=== PATIENT | male | born 1960 | race Caucasian/White ===

== ENCOUNTER 2024-09-25 20:21 | Inpatient (IN) | payer BC ==
--- NOTE | 2024-09-25 20:31 | ED ---
CPR HPI - General Chief Complaint: Cardiac Arrest/CPR Stated Complaint: Cardiac Arrest Time Seen by Provider: 09/25/24 20:29 Source: patient, RN notes reviewed, old records reviewed Mode of arrival: EMS Limitations: altered mental status - History of Present Illness Initial Comments: This is a 63-year-old male who collapsed with family, started CPR and called EMS patient was found by EMS to have ventricular fibrillation was defibrillated then ventricular tachycardia was defibrillated and had return of pulse and return of spontaneous regulation awake and alert and presents to the ER awake and alert without any acute complaints. MD Complaint: found unresponsive, stopped breathing, collapsed during activity, other (No pulse) -: minute(s) Place: home Bystander CPR Performed: Yes AED Applied by Bystander/Tutoring Manager: Yes Shock Advised: Yes Number of Shocks Delivered: 2 Initial Findings in the Field: unresponsive, no respirations, no pulse ROSC in the Field: Yes Associated Injuries: No - Related Data Allergies Allergy/AdvReac Type Severity Reaction Status Date / Time No Known Allergies Allergy Verified 09/25/24 20:27 Review of Systems ROS Statement: Those systems with pertinent positive or pertinent negative responses have been documented in the HPI. ROS Other: All systems not noted in ROS Statement are negative. Past Medical History Past Medical History: Unable to Obtain Past Surgical History: Unable to Obtain Smoking Status: Never smoker Past Alcohol Use History: Daily Past Drug Use History: Marijuana General Exam Limitations: altered mental status (Mild confusion) General appearance: alert, in no apparent distress, anxious Head exam: Present: atraumatic, normocephalic, normal inspection Eye exam: Present: normal appearance, PERRL, EOMI. Absent: scleral icterus, conjunctival injection, periorbital swelling ENT exam: Present: normal exam, mucous membranes moist Neck exam: Present: normal inspection. Absent: tenderness, meningismus, lymphadenopathy Respiratory exam: Present: normal lung sounds bilaterally. Absent: respiratory distress, wheezes, rales, rhonchi, stridor Cardiovascular Exam: Present: regular rate, normal rhythm, normal heart sounds. Absent: systolic murmur, diastolic murmur, rubs, gallop, clicks GI/Abdominal exam: Present: soft, normal bowel sounds. Absent: distended, tenderness, guarding, rebound, rigid Extremities exam: Present: normal inspection, full ROM, normal capillary refill. Absent: tenderness, pedal edema, joint swelling, calf tenderness Back exam: Present: normal inspection Neurological exam: Present: alert, oriented X3, CN II-XII intact Psychiatric exam: Present: normal affect, normal mood Skin exam: Present: warm, dry, intact, normal color. Absent: rash Course Vital Signs 09/25/24 09/25/24 09/25/24 20:23 21:05 23:06 Temperature 98.0 F Pulse Rate 80 80 78 Respiratory 18 18 18 Rate Blood Pressure 109/75 90/73 100/70 O2 Sat by Pulse 98 99 97 Oximetry - Reevaluation(s) Reevaluation #1: 09/25/24 21:40 Medical records reviewed Reevaluation #2: 09/25/24 21:40 Patient symptoms remain improved here in the ER no complaints Reevaluation #3: 09/25/24 21:40 Patient informed of results and questions answered Reevaluation #4: Was pt. sent in by a medical professional or institution (, PA, BLENDING OPERATOR, urgent care, hospital, or jail...) When possible be specific @ -no Did you speak to anyone other than the patient for history (EMS, parent, family, police, friend...)? What history was obtained from this source @ -no Did you review nursing and triage notes (agree or disagree)? Why? @ -agree Are old charts reviewed (outside hosp., previous admission, EMS record, old EKG, old radiological studies, urgent care reports/EKG's, jail records)? Report findings @ -yes Differential Diagnosis (chest pain, altered mental status, abdominal pain women, abdominal pain men, vaginal bleeding, weakness, fever, dyspnea, syncope, headache, dizziness, GI bleed, back pain, seizure, CVA, palpatations, mental health, musculoskeletal)? @ -prior EKG interpreted by me (3pts min.). @ -yes X-rays interpreted by me (1pt min.). @ -yes negative for acute disease CT interpreted by me (1pt min.). @ -no U/S interpreted by me (1pt. min.). @ -no What testing was considered but not performed or refused? (CT, X-rays, U/S, labs)? Why? @ -none What meds were considered but not given or refused? Why? @ -none Did you discuss the management of the patient with other professionals (professionals i.e. , PA, BLENDING OPERATOR, lab, RT, psych nurse, high school social studies tutor, agricultural mechanic, teacher, collections officer, case management assistant)? Give summary @ -no Was smoking cessation discussed for >3mins.? @ -no Was critical care preformed (if so, how long)? @ -no Were there social determinants of health that impacted care today? How? (Homelessness, low income, unemployed, alcoholism, drug addiction, transportation, low edu. Level, literacy, decrease access to med. care, [place] [facility], rehab)? @ -none Was there de-escalation of care discussed even if they declined (Discuss DNR or withdrawal of care, Hospice)? DNR status @ -no What co-morbidities impacted this encounter? (DM, HTN, Smoking, COPD, CAD, Cancer, CVA, ARF, Chemo, Hep., AIDS, mental health diagnosis, sleep apnea, morbid obesity)? @ -none Was patient admitted / discharged? Hospital course, mention meds given and route, prescriptions, significant lab abnormalities, going to OR and other pertinent info. @ - Undiagnosed new problem with uncertain prognosis? @ -no Drug Therapy requiring intensive monitoring for toxicity (Heparin, Nitro, Insulin, Cardizem)? @ -no Were any procedures done? @ -no Diagnosis/symptom? @ - Acute, or Chronic, or Acute on Chronic? @ -Acute Uncomplicated (without systemic symptoms) or Complicated (systemic symptoms)? @ -Complicated Side effects of treatment? @ -no Exacerbation, Progression, or Severe Exacerbation? @ -exacerbation Poses a threat to life or bodily function? How? (Chest pain, USA, NC, pneumonia, PE, COPD, DKA, ARF, appy, cholecystitis, CVA, Diverticulitis, Homicidal, Suicidal, threat to staff... and all critical care pts) @ -yes - Consultations Consultation #1: Spoke with elisa who agrees to admit this patient Medical Decision Making - Medical Decision Making 63 male coming in with cardiac arrest ventricular fibrillation, ventricular tachycardia return of spontaneous circulation and currently awake and alert. No EKG changes, patient will admit for cardiac evaluation - Lab Data Result diagrams: 09/25/24 20:31 09/25/24 20:53 Lab Results 09/25/24 09/25/24 09/25/24 Range/Units 20:31 20:31 20:53 WBC 10.77 H (4.50-10.00) 10*3/uL RBC 4.85 (4.40-5.60) 10*6/uL Hgb 14.4 (13.0-17.0) g/dL Hct 43.0 (39.6-50.0) % MCV 88.7 (80.0-97.0) fL MCH 29.7 (27.0-32.0) pg MCHC 33.5 (32.0-37.0) g/dL Plt Count 157 (140-440) 10*3/uL MPV 11.2 (9.5-12.2) fL Immature Gran % (Auto) 1.0 % Neutrophils % 59.4 % Lymphocytes % 33.1 % Monocytes % 5.4 % Eosinophils % 0.8 % Basophils % 0.3 % Immature Gran # 0.11 H (0.00-0.04) 10*3/uL Neutrophils # 6.40 (1.80-7.70) 10*3/uL Lymphocytes # 3.56 (0.90-5.00) 10*3/uL Monocytes # 0.58 (0.20-1.00) 10*3/uL Eosinophils # 0.09 (0.04-0.35) 10*3/uL Basophils # 0.03 (0.00-0.10) 10*3/uL PT (10.0-12.5) sec INR (<1.2) APTT (22.0-30.0) sec Sodium 138 (137-145) mmol/L Potassium 4.4 (3.5-5.1) mmol/L Chloride 105 (98-107) mmol/L Carbon Dioxide 23 (22-30) mmol/L Anion Gap 10 mmol/L BUN 15 (9-20) mg/dL Creatinine 1.15 (0.66-1.25) mg/dL Est GFR (CKD-EPI)AfAm 78 (>60 ml/min/1.73 sqM) Est GFR (CKD-EPI)NonAf 68 (>60 ml/min/1.73 sqM) Glucose 159 H (74-99) mg/dL Lactic Ac Sepsis Rflx Plasma Lactic Acid Lucho 4.4 H* (0.7-2.0) mmol/L Calcium 8.5 (8.4-10.2) mg/dL Phosphorus 4.4 (2.5-4.5) mg/dL Magnesium 2.0 (1.6-2.3) mg/dL Total Bilirubin 0.5 (0.2-1.3) mg/dL AST 413 H (17-59) U/L ALT 369 H (4-49) U/L Alkaline Phosphatase 57 (38-126) U/L Troponin I (0.000-0.034) ng/mL NT-Pro-B Natriuret Pep 476 pg/mL Total Protein 6.5 (6.3-8.2) g/dL Albumin 3.5 (3.5-5.0) g/dL 09/25/24 09/25/24 09/25/24 Range/Units 20:53 20:53 21:05 WBC (4.50-10.00) 10*3/uL RBC (4.40-5.60) 10*6/uL Hgb (13.0-17.0) g/dL Hct (39.6-50.0) % MCV (80.0-97.0) fL MCH (27.0-32.0) pg MCHC (32.0-37.0) g/dL Plt Count (140-440) 10*3/uL MPV (9.5-12.2) fL Immature Gran % (Auto) % Neutrophils % % Lymphocytes % % Monocytes % % Eosinophils % % Basophils % % Immature Gran # (0.00-0.04) 10*3/uL Neutrophils # (1.80-7.70) 10*3/uL Lymphocytes # (0.90-5.00) 10*3/uL Monocytes # (0.20-1.00) 10*3/uL Eosinophils # (0.04-0.35) 10*3/uL Basophils # (0.00-0.10) 10*3/uL PT 11.0 (10.0-12.5) sec INR 1.0 (<1.2) APTT 20.0 L (22.0-30.0) sec Sodium (137-145) mmol/L Potassium (3.5-5.1) mmol/L Chloride (98-107) mmol/L Carbon Dioxide (22-30) mmol/L Anion Gap mmol/L BUN (9-20) mg/dL Creatinine (0.66-1.25) mg/dL Est GFR (CKD-EPI)AfAm (>60 ml/min/1.73 sqM) Est GFR (CKD-EPI)NonAf (>60 ml/min/1.73 sqM) Glucose (74-99) mg/dL Lactic Ac Sepsis Rflx Y Plasma Lactic Acid Lucho (0.7-2.0) mmol/L Calcium (8.4-10.2) mg/dL Phosphorus (2.5-4.5) mg/dL Magnesium (1.6-2.3) mg/dL Total Bilirubin (0.2-1.3) mg/dL AST (17-59) U/L ALT (4-49) U/L Alkaline Phosphatase (38-126) U/L Troponin I 2.190 H* (0.000-0.034) ng/mL NT-Pro-B Natriuret Pep pg/mL Total Protein (6.3-8.2) g/dL Albumin (3.5-5.0) g/dL - EKG Data -: EKG Interpreted by Me (EKG is sinus 80 WA 150 QRS [address] elevation noted) - Radiology Data Radiology results: report reviewed (Chest x-ray CTA chest negative for acute disease), image reviewed Critical Care Time Critical Care Time: Yes Total Critical Care Time: 31 Disposition Clinical Impression: Cardiac arrest, Ventricular tachycardia, Ventricular fibrillation Disposition: ADMITTED IP TO THIS HOSP Condition: Fair Is patient prescribed a controlled substance at d/c from ED?: No Referrals: None,Stated [Primary Care Provider] - 1-2 days Time of Disposition: 21:30
[2024-09-25 20:43] LABS: Basophils # (A) 0.03 10*3/uL (0.00-0.10); Basophils % (A) 0.3 %; Eosinophils # (A) 0.09 10*3/uL (0.04-0.35); Eosinophils % (A) 0.8 %; HGB 14.4 g/dL (13.0-17.0); Lymphocytes # (A) 3.56 10*3/uL (0.90-5.00); Lymphocytes % (A) 33.1 %; MCH 29.7 pg (27.0-32.0); MCHC 33.5 g/dL (32.0-37.0); MCV 88.7 fL (80.0-97.0); Mean Platelet Volume 11.2 fL (9.5-12.2); Monocytes # (A) 0.58 10*3/uL (0.20-1.00); Monocytes % (A) 5.4 %; Neutrophils % (A) 59.4 %; Platelet Count 157 10*3/uL (140-440); RBC 4.85 10*6/uL (4.40-5.60); RDW 13.7 % (11.5-14.5); WBC 10.77 10*3/uL (4.50-10.00)
[2024-09-25] MEDS: SODIUM CHLORIDE 0.9% 1,000 ML IV ONE (20:45)
[2024-09-25] MEDS: DEXTROSE 5% IN WATER 100 ML with AMIODARONE 150 MG IV ONE (20:58)
[2024-09-25] MEDS: AMIODARONE 360 MG in DEXTROSE 5% IN WATER 200 ML IV ONE (21:11)
--- NOTE | 2024-09-25 21:21 | XR ---
EXAMINATION TYPE: XR chest 1V portable DATE OF EXAM: 09/25/2024 8:47 PM COMPARISON: None. CLINICAL INDICATION: Male, 63 years old with history of sob, TECHNIQUE: XR chest 1V portable view(s) obtained. FINDINGS: The heart size is normal. The pulmonary vasculature is normal. Some mild peripheral right upper lobe infiltrate may be present. Correlate for pneumonia. Consider at ypical pneumonia. Minimal effusions may be present. IMPRESSION: 1. Mild right upper lobe infiltrate appears to be present. Correlate for pneumonia. 2. Small bilateral pleural effusions. [facility], , 09/25/2024 9:18 PM
[2024-09-25 21:24] LABS: ALT 369 U/L (4-49); AST 413 U/L (17-59); African American GFR (CKD) 78 (>60 ml/min/1.73 sqM); Albumin 3.5 g/dL (3.5-5.0); Alkaline Phosphatase 57 U/L (38-126); Anion Gap 10 mmol/L; Blood Urea Nitrogen 15 mg/dL (9-20); Calcium 8.5 mg/dL (8.4-10.2); Carbon Dioxide 23 mmol/L (22-30); Chloride 105 mmol/L (98-107); Glucose 159 mg/dL (74-99); Non-African American GFR(CKD) 68 (>60 ml/min/1.73 sqM); Phosphorus 4.4 mg/dL (2.5-4.5); Potassium 4.4 mmol/L (3.5-5.1); Sodium 138 mmol/L (137-145); Total Bilirubin 0.5 mg/dL (0.2-1.3); Total Protein 6.5 g/dL (6.3-8.2)
[2024-09-25 21:31] LABS: NT-Pro-B-Type Natriuretic Pept 476 pg/mL
[2024-09-25] MEDS ORDERED: NITROGLYCERIN SL TABS 0.4 MG TAB SUBLINGUAL PRN (21:35)
[2024-09-25] MEDS ORDERED: MORPHINE SULFATE 4 MG/ML SYRINGE IV PRN (21:35)
[2024-09-25] MEDS: ONDANSETRON 4 MG/2 ML VIAL IVP STA (21:42)
--- NOTE | 2024-09-25 22:10 | CT ---
EXAMINATION TYPE: CT angio chest DATE OF EXAM: 09/25/2024 9:54 PM COMPARISON: None. CLINICAL INDICATION: Male, 63 years old with history of pe, cardiac arrest, post CPR, TECHNIQUE: CT of the chest is performed on a spiral scan at 2 mm thick sections. Study is performed with intravenous contrast timed for evaluation for pulmonary embolism. This will limit additional po rtions of the evaluation. 10mm MIP images reconstructed by the technologist are reviewed on the comp uter in the coronal and sagittal planes. Contrast used:80 mL of Isovue 370 with IV Contrast, (none if empty) Oral contrast used: (none if empty) CT DLP: 558.8 mGycm, Automated exposure control for dose reduction was used. FINDINGS: No persistent filling defects are evident to suggest an acute pulmonary embolism. No mediastinal or hilar adenopathy enlarged by CT criteria is evident. The ascending aorta diameter at the level of the main pulmonary artery is 3.9 cm. The main pulmonary artery diameter at the bifurcation is 3.0 cm. There appears to be some scarring at the right apex. Moderate emphysematous changes are present. Some diffuse increased lung markings at the right lung. Consider pulmonary fibrosis. Neoplasm could b e considered. Infectious etiologies less likely. There is some mild infiltrate at the posterior left lung base. A 1.2 cm nodule may be at the posterior left lung sulcus. Series 406 image 132. No significant coronary artery calcifications. No rib fractures are evident. No pneumothorax is evident. Limited CT sections were through the upper abdomen. Upper abdomen appears unremarkable. IMPRESSION: 1. No acute pulmonary embolism. 2. Lung nodule posterior left lung. Additional workup is recommended. 3. Diffuse increased lung markings right mid lung. Pulmonary fibrosis, neoplasm or possibly infectiou s etiology could be considered. Consider pulmonary contusion. Additional workup recommended. [facility], , 09/25/2024 10:07 PM
[2024-09-25] MEDS: HEPARIN SOD,PORK IN 0.45% NACL 25,000 UNIT in 0.45% NACL 1 250ML.BAG IV SCH (22:58)
[2024-09-25] MEDS: HEPARIN SODIUM 1,000 UN/ML (10ML VL) IV ONE (22:58)
[2024-09-25] MEDS: ASPIRIN 81 MG PO STA (23:03)
[2024-09-25] MEDS ORDERED: IPRATROPIUM-ALBUTEROL 3 ML NEB INHALATION PRN (23:18)
[2024-09-25] MEDS ORDERED: NALOXONE 0.4 MG/ML 1 ML VIAL IV PRN (23:18)
[2024-09-25] MEDS: PANTOPRAZOLE 40 MG/10 ML VIAL IV SCH (23:48)
--- NOTE | 2024-09-26 01:34 | P.CNPUL ---
History of Present Illness Consult date: 09/26/24 Requesting physician: Barrett Lam Reason for consult: other (Jee-gh-rzptwmdk cardiac arrest) Chief complaint: Zen-kn-bgkwyifk cardiac arrest History of present illness: Patient is a 63-year-old male with little known past medical history, he does not follow with a primary care provider. Not currently prescribed any medications at home. Patient went unresponsive at the kitchen table last night, EMS was called immediately. His moved him to the floor and started CPR. When EMS arrived, patient was found to be in ventricular fibrillation/ventricular tachycardia, defibrillated x 2. Following return of spontaneous circulation patient became responsive and alert. He was not in tubated. He was brought into the emergency department late last night. EKG showing normal sinus rhythm, rate 80 bpm, occasional unifocal PVCs, without any acute ST segment elevations or T wave inversions. He was loaded with IV amiodarone, and started on the protocol. Also, started on IV heparin per cardiology recommendations. Labs including a CBC which was grossly unremarkable. CMP: Low sodium 138, potassium 4.4, chloride 105, serum bicarb 23, BUN 15, creatinine 1.15, glucose 159. Lactic was 4.4 is down to 1.9 did receive a 1 L normal saline bolus in the ED. Magnesium 2. AST 413, ALT 369, ALP 57. Troponin elevated at 2.19. NT proBNP 476. Currently being evaluated in trauma bay 1. He is awake and alert and oriented. Continues on IV amiodarone at 1 mg/min as well as IV heparin per protocol. Hemodynamics are currently stable. Not on any vasopressors. Denies any current chest pain; although, experiencing intermittent right-sided chest pain, as well as, associated right arm aching over the last 2 to 3 days. Did recall episode of heartburn, nausea, and diaphoresis preceding his cardiac arrest. No significant lower extremity edema. Denies any shortness of breath, cough, sputum production, hemoptysis. States he was recently treated for bronchitis on outpatient basis by a local urgent care center 2 to 3 weeks ago with a combination of antibiotics and steroids. Chest CTA done in the emergency department did not show any acute pulmonary embolism. Left posterior lower lung nodule measuring approximately 1.2 cm. Increased interstitial right mid lung markings. No pneumothoraces, pleural effusions. current vital signs: Afebrile, heart rate 70 bpm, blood pressure 100/70 mmHg, nontachypneic, SpO2 recorded at 97% on 2 L/min nasal cannula. Review of Systems REVIEW OF SYSTEMS: CONSTITUTIONAL: Denies any recent significant weight loss or weight gain. EYES: Denies change in vision. EARS, NOSE, MOUTH, THROAT: Denies headaches, denies sore throat. CARDIOVASCULAR: See HPI RESPIRATORY: See HPI GASTROINTESTINAL: Denies change in appetite, abdominal pain, nausea and vomiting, or diarrhea GENITOURINARY: Denies hematuria, denies infections. MUSKULOSKELETAL: Denies pain, denies swelling. INTEGUMENTARY: Denies rash, denies eczema. NEUROLOGICAL: Denies recent memory loss, no recent seizure activity. PSYCHIATRIC: Denies anxiety, denies depression. HEMATOLOGIC/LYMPHATIC: Denies anemia, denies enlarged lymph node Past Medical History Past Medical History: Unable to Obtain Past Surgical History: Unable to Obtain Smoking Status: Never smoker Past Alcohol Use History: Daily Past Drug Use History: Marijuana Medications and Allergies Home Medications Medication Instructions Recorded Confirmed Type No Known Home Medications 09/26/24 09/26/24 History Allergies Allergy/AdvReac Type Severity Reaction Status Date / Time No Known Allergies Allergy Verified 09/26/24 09:36 Physical Exam Vitals: Vital Signs Temp Pulse Resp BP Pulse Ox 09/25/24 23:06 78 18 100/70 97 09/25/24 21:05 80 18 90/73 99 09/25/24 20:23 98.0 F 80 18 109/75 98 Intake and Output 09/25/24 09/25/24 09/26/24 14:59 22:59 06:59 Other: Weight 113.398 kg GENERAL EXAM: Alert, 63-year-old male, comfortable in no apparent distress. HEAD: Normocephalic and atraumatic EYES: Normal reaction of pupils, equal size. NOSE: Clear with pink turbinates. THROAT: No erythema or exudates. NECK: No masses, no JVD. CHEST: No chest wall deformity. LUNGS: Equal air entry with no crackles, wheeze, rhonchi or dullness. On 2 L/min nasal cannula. No conversational dyspnea or accessory muscle use.. CVS: S1 and S2 normal with no audible murmur, regular rhythm. No extra heart sounds ABDOMEN: No hepatosplenomegaly, active bowel sounds, no guarding or rigidity. SPINE: No scoliosis or deformity SKIN: No rashes CENTRAL NERVOUS SYSTEM: No focal deficits, tone is normal in all 4 extremities. EXTREMITIES: There is no peripheral edema, clubbing, or cyanosis. Peripheral pulses are intact. Results - Laboratory Findings CBC and BMP: 09/25/24 20:31 09/26/24 03:40 PT/INR, D-dimer PT 11.0 sec (10.0-12.5) 09/25/24 20:53 INR 1.0 (<1.2) 09/25/24 20:53 Abnormal lab findings: Abnormal Labs 09/25/24 09/25/24 09/25/24 20:31 20:31 20:53 WBC 10.77 H Immature Gran # 0.11 H APTT Glucose 159 H Plasma Lactic Acid Lucho 4.4 H* AST 413 H ALT 369 H Troponin I 09/25/24 04 20:53 20:53 WBC Immature Gran # APTT 20.0 L Glucose Plasma Lactic Acid Lucho AST ALT Troponin I 2.190 H* - Diagnostic Findings Chest x-ray: image reviewed CT scan - chest: image reviewed Assessment and Plan Assessment: Witnessed [id number] cardiac arrest, presenting rhythm when EMS arrived was ventricular fibrillation/ventricular tachycardia, defibrillated x 2, and ROSC was achieved in the field. Started on the IV amiodarone and IV heparin in the emergency department. Elevated troponins, rule out ACS Lactic acidemia, improved Acute hypoxemic respiratory failure, currently on 2 L/min nasal cannula, chest CTA did not show any acute pulmonary embolism. No pneumothoraces or pleural effusions. Left posterior lung nodule measuring approximately 1.2 cm. Increased interstitial right mid lung markings. Former tobacco smoker, quit approximately 15 years ago Obesity, BMI of 33.9 kg/m Plan: Patient had a witnessed [id number] cardiac arrest, with layperson CPR, and subsequent defibrillation x 2 by EMS. Did not require intubation in the field. Continues on IV amiodarone infusing at 1 mg/min, as well as, IV heparin per protocol. Patient is going to be worked up by cardiology for ACS. Trend troponins. Obtain transthoracic echocardiogram. Possible heart catheterization. Chest CTA did not show any acute pulmonary embolism. No pneumothoraces or pleural effusions. Other incidental pulmonary findings can be followed up on outpatient basis Case discussed over the phone with Dr. Yeung, no further recommendations at this time. Patient will be admitted to the intensive care unit for close monitoring once bed available. I have personally seen and examined the patient, performed the documentation and the assessment and plan as written. Number of minutes spent on the visit:20 This is a joint evaluation that was done along with the nurse practitioner. This evaluation was done and 35 minutes. The patient is post cardiac arrest with V-fib/V. tach requiring defibrillation and return of spontaneous circulation. At this point in time, the patient remains on IV heparin and IV amiodarone. Cardiac rhythm is sinus and is free of any chest pain. Hemodynamically stable. Troponins peaked at 5.2. Electrolytes all within normal limits. Normal renal function. CBC is also within normal limits. Chest x-ray was reviewed and it shows mild right upper lobe infiltration and small pleural effusions. CT of the chest was also reviewed and shows no evidence of any pulmonary embolism. There is increased interstitial markings in the right midlung area, probably chronic. A 1.2 cm nodular structure was seen in the posterior left lung sulcus, likely benign. There is some emphysematous changes bilaterally to previous smoking. This can be addressed at a later stage. No evidence of any filling defect. No hilar lymphadenopathy. No mediastinal lymphadenopathy. Ascending aorta was measuring 3.9 cm in size. The patient will be taken to cardiac catheterization for further investigation. Ech ocardiogram shows a preserved LV function with an ejection fraction of 50 to 55%, there is inferior and inferior septal hypokinesis and moderate RV dilatation and unable to estimate the PA pressures. is at the bedside. Comorbidities include former smoker who quit smoking approximately 15 years ago. The patient does not follow-up with a physician on a regular basis. Awaiting cardiac catheterization and following that the patient will be moved to the intensive care unit. Continue same treatment for now. Time with Patient: Greater than 30
[2024-09-26] MEDS: MAGNESIUM SULFATE-D5W PMX 1 GM in DEXTROSE/WATER 1 100ML.BAG IVPB SCH (02:12)
[2024-09-26] MEDS: AMIODARONE 450 MG in DEXTROSE 5% IN WATER 250 ML IV SCH (03:07)
--- NOTE | 2024-09-26 03:22 | P.HPIM ---
History of Present Illness Patient is a 63-year-old male with no known medical history arrived by EMS due to cardiac arrest. Patient was reported to have collapsed at home and bystander CPR was initiated by his and EMS was called. On arrival EMS determined patient to have ventricular fibrillation and was defibrillated. Rhythm then converted to ventricular tachycardia and another defibrillation was done and ROSC was achieved. Patient arrived in the ER awake and alert without any acute complaints. Patient reported that prior to losing consciousness he was experiencing chest pain that was burning in sensation that radiated to the back and his right arm that was constant and was occurring 2 days prior to day of admission. He reported that the intensity was around 8 out of 10 at maximum and was not relieved by [id number] aspirin. He mentions that the pain is worse with exertion and relieved with rest. At the time of evaluation, he denied chest pain. He denied palpitations, shortness of breath, extremity swelling, productive cough, focal weakness, facial asymmetry, changes in vision, changes in speech. He recently had been diagnosed with bronchitis and pneumonia a week ago and was placed on oral steroid taper for 5 days and antibiotics for 7 days in which his symptoms improved. He has not seen a PCP in many years. On admission: Vitals: Temperature 98 Fahrenheit, pulse rate 80, blood pressure 109/75, O2 saturation 98% on 2 L nasal cannula Labs: WBC 10.77, hemoglobin 14.4, platelet count 1 57,000, glucose 159, potassium 4.4, bicarb 23, BUN 15, creatinine 1.15, lactic acid 4.4, AST 413, ALT 369, troponin 2.19. Imaging: Chest x-ray showed mild right upper lobe infiltrate correlate for pneumonia and small bilateral pleural effusions. CT angiography showed no acute pulmonary embolism, lung nodule noted on posterior left lung, diffuse increased lung markings in the right midlung. EKG showed sinus rhythm with a rate of 80 bpm, IN interval 150 MS, PVCs noted, no ST-T changes, normal axis, QTc 361 MS. ED documentation reviewed. Amiodarone drip, aspirin, heparin drip, metoprolol tartrate initiated in the ED. 1 L normal saline bolus given in the ED. Review of systems: Pertinent positives and negatives as discussed in HPI, a complete review of systems was performed and all other systems are negative. Social history: Tobacco: Former smoker. Quit 15 years ago. Smoked 2 packs a day for 35 years. Alcohol: Denied alcohol intake Recreational drugs: Currently smokes marijuana. 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 Physical examination: Vital signs reviewed General: non toxic, no distress, appears at stated age, on room air Derm: no unusual rashes/lesions, warm Head: atraumatic, normocephalic, symmetric Eyes: EOMI, anicteric sclera, pupils equal round reactive to light ENT: Nose and ears atraumatic Neck: No cervical lymphadenopathy, trachea midline, supple Mouth: no lip lesion, mucus membranes moist Cardiovascular: S1S2 reg, no murmur Lungs: CTA bilateral, no rhonchi, no rales, no accessory muscle use Abdominal: soft, nondistended, nontender to palpation, no guarding Ext: muscle strength 5 out of 5 in all 4 extremities grossly, no gross muscle atrophy, no contractures, positive dorsalis pedis pulse bilateral, no edema Neuro: CN II-XI grossly intact, no gross focal neuro deficits Psych: Alert and oriented x 3, appropriate affect and mood Assessment/Plan: 63-year-old male with no known medical history here for cardiac arrest status post ROSC and shocked x 2 due to ventricular arrhythmia likely due to underlying ACS. The patient is admitted with an anticipated greater than than 2 midnight stay for evaluation of cardiac arrest with ventricular arrhythmia and NSTEMI Active: #. Cardiac arrest suspect secondary to underlying ACS, status post CPR with ROSC #. Ventricular tachycardia and ventricular fibrillation, status post shock x 2 #. NSTEMI #. Lactic acidosis, resolved due to cardiac arrest - troponin 2.19 on admission -lactic acid 4.4. Now 1.9 -EKG showed sinus rhythm with a rate of 80 bpm, IN interval 150 MS, PVCs noted, no ST-T changes, normal axis, QTc 361 MS -Cardiac monitoring -Supplemental oxygen as needed -Heart healthy diet. NPO at midnight -Trend troponin -EKG as needed -Given aspirin 325 mg once in the ED -Continue with aspirin 81 mg daily -Intiate Lipitor 40mg daily -Continue heparin drip - Continue amiodarone drip -Metoprolol tartarate 25 mg PO twice daily -Lidocaine patch ordered -Cardiology consulted -Pulmonology consulted for ICU management -Maintain magnesium above 2 and potassium above 4 - Monitor electrolytes - Check lipid panel, A1c, TSH #. Elevated transaminases likely due to shocked liver - AST 413, ALT 369 -Liver ultrasound ordered - Monitor CMP #. Hyperglycemia due to stress -Recheck in the morning to reevaluate no hx of dm2, a1c pending #. Lung nodule noted on posterior left lung and diffuse increased lung markings in the right midlung on CTA - Patient had recent diagnosis of bronchitis and pneumonia and symptoms have improved -Follow up on out patient basis DVT ppx: Heparin drip GI ppx: IV Protonix daily CODE STATUS: Full Discussed with: Patient Anticipated discharge place: Home Roxanna Herron MD PGY-1 Internal Medicine Dictation was produced using [employer] dictation software. please excuse any grammatical, word or spelling errors. I have seen and evaluated the patient today. Discussed with the resident and agree with the residents finding and plan as documented in the resident's note. 63 YO M who had VT/VF in the field and was shocked. Currently on amiodarone gtt. Concern for ACS as he reports ongoing chest pain prior to presentation. continue heparin gtt and amdioarone gtt at this time pending cardiology expertise for consideration of LHC. Keep NPo Past Medical History Past Medical History: Unable to Obtain Past Surgical History: Unable to Obtain Smoking Status: Never smoker Past Alcohol Use History: Daily Past Drug Use History: Marijuana Medications and Allergies Allergies Allergy/AdvReac Type Severity Reaction Status Date / Time No Known Allergies Allergy Verified 09/25/24 20:27 Physical Exam Vitals: Vital Signs Temp Pulse Resp BP Pulse Ox 09/25/24 23:06 78 18 100/70 97 09/25/24 21:05 80 18 90/73 99 09/25/24 20:23 98.0 F 80 18 109/75 98 Intake and Output 09/25/24 09/25/24 09/26/24 14:59 22:59 06:59 Other: Weight 113.398 kg Results CBC & Chem 7: 09/25/24 20:31 09/26/24 03:40 Labs: Abnormal Lab Results - Last 24 Hours (Table) 09/25/24 09/25/24 09/25/24 Range/Units 20:31 20:31 20:53 WBC 10.77 H (4.50-10.00) 10*3/uL Immature Gran # 0.11 H (0.00-0.04) 10*3/uL APTT (22.0-30.0) sec Glucose 159 H (74-99) mg/dL Plasma Lactic Acid Lucho 4.4 H* (0.7-2.0) mmol/L AST 413 H (17-59) U/L ALT 369 H (4-49) U/L Troponin I (0.000-0.034) ng/mL 09/25/24 09/25/24 Range/Units 20:53 20:53 WBC (4.50-10.00) 10*3/uL Immature Gran # (0.00-0.04) 10*3/uL APTT 20.0 L (22.0-30.0) sec Glucose (74-99) mg/dL Plasma Lactic Acid Lucho (0.7-2.0) mmol/L AST (17-59) U/L ALT (4-49) U/L Troponin I 2.190 H* (0.000-0.034) ng/mL
[2024-09-26 04:40] LABS: ALT 316 U/L (4-49); AST 333 U/L (17-59); African American GFR (CKD) 88 (>60 ml/min/1.73 sqM); Albumin 3.6 g/dL (3.5-5.0); Alkaline Phosphatase 62 U/L (38-126); Anion Gap 9 mmol/L; Blood Urea Nitrogen 14 mg/dL (9-20); Carbon Dioxide 23 mmol/L (22-30); Chloride 104 mmol/L (98-107); Glucose 112 mg/dL (74-99); Non-African American GFR(CKD) 76 (>60 ml/min/1.73 sqM); Potassium 4.4 mmol/L (3.5-5.1); Sodium 136 mmol/L (137-145); Total Bilirubin 0.4 mg/dL (0.2-1.3); Total Protein 6.4 g/dL (6.3-8.2)
--- NOTE | 2024-09-26 07:54 | US ---
EXAMINATION TYPE: US liver DATE OF EXAM: 09/26/2024 COMPARISON: NONE CLINICAL INDICATION: Male, 63 years old with history of elevated transaminases; Abnormal labs. TECHNIQUE: Grayscale and color Doppler imaging of the right upper quadrant was performed. FINDINGS: EXAM MEASUREMENTS: Liver Length: 19.9 cm Gallbladder Wall: 0.2 cm CBD: 0.5 cm Right Kidney: 11.2 x 4.9 x 5.3 cm Pancreas: Tail obscured by overlying bowel gas, Echogenic in appearance Liver: Increased attenuation, decreased visualization of vessels suggestive of fatty infiltrate. En larged in size. Echogenic. Hypoechoic area seen adjacent to gallbladder which could represent focal fatty sparing. Gallbladder: No wall thickening or stones seen Evidence for sonographic Paitner's sign: neg CBD: wnl Right Kidney: No hydronephrosis or masses seen IMPRESSION: 1. Hepatomegaly with fatty infiltration. [facility], , 09/26/2024 7:52 AM
[2024-09-26] MEDS ORDERED: ALPRAZolam 0.5 MG TAB PO PRN (08:14)
[2024-09-26] MEDS ORDERED: NITROGLYCERIN SL TABS 0.4 MG TAB SUBLINGUAL PRN (08:14)
[2024-09-26] MEDS ORDERED: ALPRAZolam 0.25 MG TAB PO PRN (08:14)
[2024-09-26] MEDS: ASPIRIN 81 MG PO SCH (08:57)
[2024-09-26 08:58] LABS: Chol/HDL Ratio 5.26 Ratio; LDL Cholesterol,Calculated 147.3 mg/dL (0.0-131.0)
[2024-09-26] MEDS ORDERED: ASPIRIN 325 MG TAB PO SCH (09:00)
[2024-09-26] MEDS: METOPROLOL TARTRATE 25 MG TAB PO SCH (09:11)
[2024-09-26] MEDS: ASPIRIN 325 MG TAB PO STA (09:11)
[2024-09-26] MEDS: ATORVASTATIN 80 MG TAB PO STA (09:11)
[2024-09-26] MEDS: HEPARIN SODIUM 1,000 UN/ML (10ML VL) IV PRN (09:19)
[2024-09-26] MEDS: LIDOCAINE 4% PATCH TOPICAL SCH (09:22)
[2024-09-26] MEDS: SODIUM CHLORIDE 0.9% 1,000 ML IV SCH (09:22)
--- NOTE | 2024-09-26 10:22 | P.CRDCN ---
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 He has no significant past medical history. History of tobacco use and quit 15 years ago. He uses alcohol daily and marijuana use. We have been asked to evaluate the patient for VT, CHF, CPA. History is obtained from the patient's that for 24 hours before his episode, he was taking Pepto-Bismol. 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 By 7:00 in the evening they were sitting down to the table to eat dinner. He lost consciousness and she called 911 and had also started CPR. When EMS arrived, patient was found to be in ventricular fibrillation and he was defibrillated and went into ventricular tachycardia and was defibrillated a second time. He did have return of pulse and woke up by the time he arrived to the emergency center. Patient does not remember anything after he sat down to eat dinner. He does state that he had some left-sided hip or lumbar area discomfort yesterday. Patient evaluated in the emergency center and recommendations are for cardiac catheterization which he is agreeable to move forward with. Patient's was contacted on the phone by Dr. AISHWARYA Tovar and he obtained history and updated her regarding patient's results and recommendations for cardiac catheterization. Blood pressure 103/75, heart rate 66, pulse ox 93% on room air. Patient has been started on amiodarone and IV heparin. -EKG: Sinus rhythm, nonspecific T wave abnormalities, occasional PVC. -Chest x-ray: Mild right upper lobe infiltrate appears to be present. Correlate for pneumonia. Small bilateral pleural effusions. -CTA chest: No acute pulmonary embolism. Lung nodule posterior left lung. Diffuse increased lung markings in the right midlung. Pulmonary fibrosis, neoplasm or possible infectious etiology could be considered. - Liver ultrasound: Hepatomegaly with fatty infiltration. -Laboratory studies: Troponins 2.19, 2.49, 5.29. AST 333, ALT 316. Sodium 136, potassium 4.4, creatinine 1.04. Triglycerides 122, cholesterol 212, LDL 147. WBC 10.7, hemoglobin 14.4. -Home cardiac medications: None Review Of Systems: At the time of my exam: CONSTITUTIONAL: Denies fever or chills. HEENT: Denies blurred vision, vision changes, or eye pain. Denies hemoptysis CARDIOVASCULAR: Denies chest pain. Denies orthopnea. Denies PND. Denies palpitations RESPIRATORY: Denies shortness of breath. GASTROINTESTINAL: Denies abdominal pain. Denies nausea or vomiting. HEMATOLOGIC: Denies bleeding disorders. GENITOURINARY: Denies any blood in urine. SKIN: Denies puritis. Denies rash. Physical examination: Gen: This is a 63-year-old male in no acute distress. VS: reviewed HEENT: Head is atraumatic, normocephalic. Pupils equal, round. Sclerae is anicteric. NECK: Supple. No JVD. LUNGS: Clear to auscultation. No wheezes or rhonchi. No intercostal retractions. HEART: Regular rate and rhythm. No murmur. ABDOMEN: Soft No tenderness. EXTREMITIES: No pedal edema. No calf tenderness. NEUROLOGICAL: Patient is awake, alert and oriented x3. Assessment: Cardiac arrest with ventricular fibrillation followed by ventricular tachycardia status post defibrillation x 2 with ROSC NSTEMI Acute hypoxic respiratory failure Elevated liver function test Remote history of tobacco use Daily alcohol use Marijuana use Plan: Continue patient on heparin drip Continue patient on amiodarone drip Patient has been started on aspirin 81 mg daily, atorvastatin 40 mg at bedtime, metoprolol tartrate 25 mg twice daily Start patient on IV fluids 100 cc/h Schedule patient for urgent cardiac catheterization today with Dr. Tovar Obtain 2-D echocardiogram and Doppler study to assess cardiac structure and function Further recommendations to follow based upon clinical course Thank you kindly for this consultation. Nurse practitioner note has been reviewed, I agree with documented findings and plan of care. Patient was seen and examined. Past Medical History Past Medical History: Unable to Obtain Past Surgical History: Unable to Obtain Smoking Status: Never smoker Past Alcohol Use History: Daily Past Drug Use History: Marijuana Medications and Allergies Home Medications Medication Instructions Recorded Confirmed Type No Known Home Medications 09/26/24 09/26/24 History Allergies Allergy/AdvReac Type Severity Reaction Status Date / Time No Known Allergies Allergy Verified 09/26/24 09:36 Physical Exam Vitals: Vital Signs Temp Pulse Resp BP Pulse Ox 09/26/24 08:07 66 18 103/75 93 L 09/26/24 07:48 98 09/26/24 07:47 97.5 F L 64 16 105/76 97 09/26/24 06:00 72 18 101/66 96 09/26/24 04:00 67 18 104/74 97 09/26/24 02:08 68 17 96/65 99 09/25/24 23:06 78 18 100/70 97 09/25/24 21:05 80 18 90/73 99 09/25/24 20:23 98.0 F 80 18 109/75 98 Intake and Output 09/25/24 09/26/24 09/26/24 22:59 06:59 14:59 Other: Weight 113.398 kg Results 09/25/24 20:31 09/26/24 03:40 Cardiac Enzymes 09/25/24 09/25/24 09/26/24 Range/Units 20:53 20:53 00:01 AST 413 H (17-59) U/L Troponin I 2.190 H* 2.490 H* (0.000-0.034) ng/mL 09/26/24 09/26/24 Range/Units 03:40 03:40 AST 333 H (17-59) U/L Troponin I 5.290 H* (0.000-0.034) ng/mL Coagulation 09/25/24 09/26/24 Range/Units 20:53 06:33 PT 11.0 (10.0-12.5) sec APTT 20.0 L 27.9 (22.0-30.0) sec CBC 09/25/24 Range/Units 20:31 WBC 10.77 H (4.50-10.00) 10*3/uL RBC 4.85 (4.40-5.60) 10*6/uL Hgb 14.4 (13.0-17.0) g/dL Hct 43.0 (39.6-50.0) % Plt Count 157 (140-440) 10*3/uL Comprehensive Metabolic Panel 09/25/24 09/26/24 Range/Units 20:53 03:40 Sodium 138 136 L (137-145) mmol/L Potassium 4.4 4.4 (3.5-5.1) mmol/L Chloride 105 104 (98-107) mmol/L Carbon Dioxide 23 23 (22-30) mmol/L BUN 15 14 (9-20) mg/dL Creatinine 1.15 1.04 (0.66-1.25) mg/dL Glucose 159 H 112 H (74-99) mg/dL Calcium 8.5 9.0 (8.4-10.2) mg/dL AST 413 H 333 H (17-59) U/L ALT 369 H 316 H (4-49) U/L Alkaline Phosphatase 57 62 (38-126) U/L Total Protein 6.5 6.4 (6.3-8.2) g/dL Albumin 3.5 3.6 (3.5-5.0) g/dL Current Medications Generic Name Dose Route Start Last Admin Trade Name Freq PRN Reason Stop Dose Admin Albuterol/Ipratropium 3 ml 09/25/24 23:18 Ipratropium-Albuterol 3 Ml Neb INHALATION RT-Q4H PRN Shortness Of Breath Or Wheezing Alprazolam 0.25 mg 09/26/24 08:14 Alprazolam 0.25 Mg Tab PO Q6HR PRN Mild Anxiety Alprazolam 0.5 mg 09/26/24 08:14 Alprazolam 0.5 Mg Tab PO Q6HR PRN Moderate Anxiety Aspirin 81 mg 09/26/24 09:00 Aspirin 81 Mg PO DAILY JOSSIE Atorvastatin Calcium 40 mg 09/26/24 21:00 Atorvastatin 40 Mg Tab PO HS JOSSIE Heparin Sodium (Porcine) 0 unit 09/25/24 21:38 Heparin Sodium 1,000 Un/Ml (10ml Vl) IV PER PROTOCOL PRN Low PTT Protocol Amiodarone HCl 450 mg/ 250 mls @ 16.667 mls/hr 09/26/24 03:00 09/26/24 03:07 Dextrose/Water IV 09/26/24 20:59 0.5 mg/min .Q15H JOSSIE 16.667 mls/hr Administration Protocol 0.5 MG/MIN Heparin Sodium/Sodium Chloride 250 mls @ 10.001 mls/hr 09/25/24 22:00 09/25/24 22:58 25,000 unit/ Sodium Chloride IV 8.819 units/kg/hr .Q24H JOSSIE 10.001 mls/hr Administration Protocol 8.819 UNITS/KG/HR Heparin Sodium (Porcine) 10, 1,001 mls @ 999 mls/hr 09/27/24 07:00 000 unit/ Sodium Chloride IRRIGATION 09/27/24 23:00 ONCE PRN INTRA-OP Heparin Sodium (Porcine) 2,500 250.5 mls @ 250 mls/hr 09/27/24 07:00 unit/ Sodium Chloride IRRIGATION 09/27/24 23:00 ONCE PRN INTRA-OP Sodium Chloride 1,000 mls @ 100 mls/hr 09/26/24 08:15 Saline 0.9% IV .Q10H [facility] Lidocaine 1 patch 09/26/24 09:00 Lidocaine 4% Patch TOPICAL DAILY [facility] Protocol Metoprolol Tartrate 25 mg 09/26/24 09:00 Metoprolol Tartrate 25 Mg Tab PO BID [facility] Morphine Sulfate 4 mg 09/25/24 21:35 Morphine Sulfate 4 Mg/Ml Syringe IV Q4HR PRN Chest Pain Naloxone HCl 0.2 mg 09/25/24 23:18 Naloxone 0.4 Mg/Ml 1 Ml Vial IV Q2M PRN Opioid Reversal Nitroglycerin 0.4 mg 09/26/24 08:14 Nitroglycerin Sl Tabs 0.4 Mg Tab SUBLINGUAL Q5M PRN Chest Pain Pantoprazole Sodium 40 mg 09/25/24 23:30 09/25/24 23:48 Pantoprazole 40 Mg/10 Ml Vial IV 40 mg DAILY [facility] Administration Intake and Output 09/25/24 09/26/24 09/26/24 22:59 06:59 14:59 Other: Weight 113.398 kg 09/25/24 20:31 09/26/24 03:40
[2024-09-26] MEDS: MIDAZOLAM 2 MG/2 ML VIAL IVP ONE (11:52)
[2024-09-26] MEDS: IV FLUID CONTINUATION 1,000 ML IV ONE (11:53)
[2024-09-26] MEDS: HEPARIN SODIUM,PORCINE (1 ML) 2,500 UNIT in SODIUM CHLORIDE 0.9% 250 ML IRRIGATION PRN (11:54)
[2024-09-26] MEDS: HEPARIN SODIUM,PORCINE 10,000 UNIT in SODIUM CHLORIDE 0.9% 1,000 ML IRRIGATION PRN (11:55)
[2024-09-26] MEDS: LIDOCAINE 1% INJ 10MG/ML (20 ML MDV) SQ ONE (11:57)
[2024-09-26] MEDS: VERAPAMIL SYRINGE (5 MG/10 ML) INTRAARTER ONE (11:58)
[2024-09-26] MEDS: HEPARIN SODIUM 1,000 UN/ML (10ML VL) IV ONE (12:00)
[2024-09-26] MEDS: PHENYLEPHRINE-0.9% NACL SYG 1,000 MCG/10 ML SYRINGE IVP ONE (12:02)
[2024-09-26] MEDS: NOREPINEPHRINE 4 MG in SODIUM CHLORIDE 0.9% 250 ML IV ONE (12:21)
[2024-09-26] MEDS: TICAGRELOR 90 MG TAB PO ONE (12:31)
[2024-09-26] MEDS: IOPAMIDOL-300 100ML BTL INJ ONE (12:31)
[2024-09-26] MEDS: NITROGLYCERIN 1000MCG/10ML SYRINGE INTRACORON ONE (12:38)
[2024-09-26] MEDS: HYDROmorphone 0.5 MG/0.5 ML SYRINGE IVP ONE (12:48)
[2024-09-26] MEDS: IOPAMIDOL-370 100ML BTL INJ ONE (13:17)
--- NOTE | 2024-09-26 13:25 | CA ---
Transthoracic Echo Report Name: Brad Amos Age: 63 Gender: M : 1960 Exam Date: 09/26/2024 08:05 Exam Location: [facility] Ht (in): 72 Wt (lb): 250 Ordering Physician: Barrett Lam DO Attending/Referring Phys: [id number], Carole Package Sorter Jesica Estrada RDCS Procedure CPT: Indications: cpa Cardiac Hx: Technical Quality: Technically difficult study Contrast 1: Definity Total Dose (mL): 5 Contrast 2: Total Dose (mL): MEASUREMENTS (Male / Female) Normal Values 2D ECHO LV Diastolic Diameter PLAX 5.1 cm 4.2 - 5.9 / 3.9 - 5.3 cm LV Systolic Diameter PLAX 3.8 cm IVS Diastolic Thickness 1.1 cm 0.6 - 1.0 / 0.6 - 0.9 cm LVPW Diastolic Thickness 1.0 cm 0.6 - 1.0 / 0.6 - 0.9 cm LV Relative Wall Thickness 0.4 LVOT Diameter 2.2 cm LV Diastolic Volume MOD BP 95.1 cm??? 67 - 155 / 56 - 104 cm??? LV Systolic Volume MOD BP 49.0 cm??? 22 - 58 / 19 - 49 cm??? LV Ejection Fraction MOD BP 48.5 % >= 55 % LV Cardiac Index MOD BP 1286.9 cm???/min???m??? LV Diastolic Volume MOD 4C 111.1 cm??? LV Systolic Volume MOD 4C 46.5 cm??? LV Ejection Fraction MOD 4C 58.1 % LV Cardiac Index MOD 4C 1803.9 cm???/min???m??? LV Diastolic Length 4C 8.1 cm LV Systolic Length 4C 7.1 cm LV Diastolic Volume MOD 2C 76.6 cm??? LV Systolic Volume MOD 2C 46.6 cm??? LV Ejection Fraction MOD 2C 39.1 % LV Cardiac Index MOD 2C 835.7 cm???/min???m??? LV Diastolic Length 2C 7.5 cm LV Systolic Length 2C 6.4 cm LA Volume 39.7 cm??? 18 - 58 / 22 - 52 cm??? LA Volume Index 16.3 cm???/m??? 16 - 28 cm???/m??? Ascending Aorta Diameter 3.7 cm DOPPLER AV Peak Velocity 139.2 cm/s AV Peak Gradient 7.7 mmHg AV Mean Velocity 95.3 cm/s AV Mean Gradient 4.0 mmHg AV Velocity Time Integral 28.6 cm LVOT Peak Velocity 118.4 cm/s LVOT Peak Gradient 5.6 mmHg LVOT Velocity Time Integral 21.4 cm LVOT Stroke Volume 80.3 cm??? LVOT Stroke Volume Index 34.3 ml/m??? LVOT Cardiac Index 2241.9 cm???/min???m??? AV Area Cont Eq vti 2.8 cm??? AV Area Cont Eq pk 3.2 cm??? MV Peak Velocity 114.1 cm/s MV Peak Gradient 5.2 mmHg MV Mean Velocity 63.0 cm/s MV Mean Gradient 1.9 mmHg MV Velocity Time Integral 27.3 cm MV Area PHT 4.5 cm??? Mitral E Point Velocity 76.3 cm/s Mitral A Point Velocity 54.2 cm/s Mitral E to A Ratio 1.4 MV Deceleration Time 168.6 ms FINDINGS Left Ventricle Left ventricular ejection fraction is estimated at 50-55 %. Left ventricular cavity size normal. Inferior and inferoseptal hypokinesis Right Ventricle Moderate right ventricular dilatation. Normal right ventricular global systolic function. Unable to estimate the right ventricular systolic pressure. Right Atrium Normal right atrial size. Left Atrium Normal left atrial size. Mitral Valve Structurally normal mitral valve. No evidence for mitral valve prolapse. No mitral stenosis. Trace mitral regurgitation. Aortic Valve Aortic valve not well visualized. No aortic valve stenosis or regurgitation. Tricuspid Valve Structurally normal tricuspid valve. No tricuspid stenosis, regurgitation or prolapse. Pulmonic Valve Pulmonic valve not well visualized. No pulmonic stenosis. No pulmonic regurgitation. Pericardium No pericardial effusion. Echo free space anterior to the right ventricle likely represents a fat pad. Aorta Normal size aortic root and proximal ascending aorta. CONCLUSIONS Technically difficult study. Definity ECHO contrast used for improved visualization of the endocardial borders (inadequate visualization of two or more contiguous segments). Mildly impaired left ventricular systolic function with segmental wall motion abnormality Limited Doppler study with trace mitral regurgitation Previewed by: Dr. Tawanna Hernandez MD (Electronically Signed) Final Date: 26 September 2024 13:24
[2024-09-26] MEDS ORDERED: RX INFO: IV CONTRAST WAS GIVEN 1 EACH MISC MISCELLANE PRN (13:39)
[2024-09-26] MEDS ORDERED: MAG HYDROX/AL HYDROX/SIMETH 30 ML CUP PO PRN (13:39)
[2024-09-26] MEDS ORDERED: ATROPINE SULFATE 0.1 MG/ML 10ML SYRINGE IV PRN (13:39)
[2024-09-26] MEDS ORDERED: ZOLPIDEM 5 MG TAB PO PRN (13:39)
--- NOTE | 2024-09-26 15:39 | P.PN ---
Subjective Progress Note Date: 09/26/24 Subjective: Patient seen and examined at bedside. No acute events overnight. Underwent cardiac cath. Claims that chest discomfort has resolved. Pertinent positives and negatives as discussed above, a complete review of systems was performed and all other systems are negative. Vitals Signs Reviewed. General: Nontoxic, no distress, appears at stated age Derm: Warm, dry Head: Atraumatic, normocephalic, symmetric Eyes: EOMI, no lid lag, anicteric sclera Mouth: No lip lesion, mucus membranes moist Cardiovascular: S1S2 reg, no murmur Lungs: CTA bilateral, no rhonchi, no rales, no accessory muscle use Abdominal: Soft, nontender to palpation, no guarding, no appreciable organomegaly Ext: No gross muscle atrophy, no edema, no contractures Neuro: CN II-XI grossly intact, no focal neuro deficits Psych: Alert, oriented, appropriate affect Data Reviewed Today: Pertinent Labs: Creatinine 1.04, A1c 6.1, troponin elevated to 5.29, total cholesterol 212, LDL 147, AST 333, ALT 316, ALP 62 Imaging: Echocardiogram shows LVEF 50 to 55%, inferior and inferior septal hypokinesis. EKG independently interpreted, shows nonspecific ST-T wave changes mostly in anterior leads. Liver ultrasound shows hepatomegaly with fatty infiltration. Assessment and Plan: Active: Acute NSTEMI V-fib/V. tach cardiac arrest status post defibrillation x 2 Lactic acidosis, resolved Transaminitis, likely ischemic hepatitis Hepatic steatosis - Discussed with cardiology, continue amiodarone IV 0.5 mg drip - Aspirin 81 mg daily, atorvastatin 80 mg nightly, Brilinta 90 mg twice daily - Patient underwent cardiac cath, report pending - Currently on heparin drip, monitor APTT, monitor for bleeding - Also on losartan 12.5 daily, metoprolol 25 twice daily, Protonix IV 40 daily - No right upper quadrant pain lung nodule - Outpatient follow-up DVT ppx: Heparin drip Code status: Full code Anticipated discharge place: Pending clinical course Anticipated discharge time: Pending clinical course Objective - Vital Signs Vital signs: Vital Signs Temp 97.5 F L 09/26/24 07:47 Pulse 68 09/26/24 14:09 Resp 16 09/26/24 14:09 BP 98/57 09/26/24 14:09 Pulse Ox 90 L 09/26/24 14:09 FiO2 Intake & Output 09/25/24 09/26/24 09/26/24 18:59 06:59 18:59 Intake Total 813.51 Balance 813.51 Weight 113.398 kg 113.398 kg Intake: IV 710 Intake, IV Titration 103.51 Amount Heparin Sod,Pork in 0.45% 103.51 NaCl 25,000 unit In 0.45 % NaCl 1 250ml.bag @ 8. 819 UNITS/KG/HR 10.001 mls/hr IV .Q24H [facility] Rx#: [id number] - Labs CBC & Chem 7: 09/25/24 20:31 09/26/24 03:40 Labs: Abnormal Lab Results - Last 24 Hours (Table) 09/25/24 09/25/24 09/25/24 Range/Units 20:31 20:31 20:53 WBC 10.77 H (4.50-10.00) 10*3/uL Immature Gran # 0.11 H (0.00-0.04) 10*3/uL APTT (22.0-30.0) sec Sodium (137-145) mmol/L Glucose 159 H (74-99) mg/dL Hemoglobin A1c (<=6.0) % Plasma Lactic Acid Lucho 4.4 H* (0.7-2.0) mmol/L AST 413 H (17-59) U/L ALT 369 H (4-49) U/L Troponin I (0.000-0.034) ng/mL Cholesterol (0.00-200.00) mg/dL LDL Cholesterol, Calc (0.0-131.0) mg/dL 09/25/24 09/25/24 09/26/24 Range/Units 20:53 20:53 00:01 WBC (4.50-10.00) 10*3/uL Immature Gran # (0.00-0.04) 10*3/uL APTT 20.0 L (22.0-30.0) sec Sodium (137-145) mmol/L Glucose (74-99) mg/dL Hemoglobin A1c (<=6.0) % Plasma Lactic Acid Lucho (0.7-2.0) mmol/L AST (17-59) U/L ALT (4-49) U/L Troponin I 2.190 H* 2.490 H* (0.000-0.034) ng/mL Cholesterol (0.00-200.00) mg/dL LDL Cholesterol, Calc (0.0-131.0) mg/dL 09/26/24 09/26/24 09/26/24 Range/Units 03:40 03:40 03:40 WBC (4.50-10.00) 10*3/uL Immature Gran # (0.00-0.04) 10*3/uL APTT (22.0-30.0) sec Sodium 136 L (137-145) mmol/L Glucose 112 H (74-99) mg/dL Hemoglobin A1c (<=6.0) % Plasma Lactic Acid Lucho (0.7-2.0) mmol/L AST 333 H (17-59) U/L ALT 316 H (4-49) U/L Troponin I 5.290 H* (0.000-0.034) ng/mL Cholesterol 212.00 H (0.00-200.00) mg/dL LDL Cholesterol, Calc 147.3 H (0.0-131.0) mg/dL 09/26/24 Range/Units 03:40 WBC (4.50-10.00) 10*3/uL Immature Gran # (0.00-0.04) 10*3/uL APTT (22.0-30.0) sec Sodium (137-145) mmol/L Glucose (74-99) mg/dL Hemoglobin A1c 6.1 H (<=6.0) % Plasma Lactic Acid Lucho (0.7-2.0) mmol/L AST (17-59) U/L ALT (4-49) U/L Troponin I (0.000-0.034) ng/mL Cholesterol (0.00-200.00) mg/dL LDL Cholesterol, Calc (0.0-131.0) mg/dL
[2024-09-26] MEDS: TICAGRELOR 90 MG TAB PO SCH (20:21)
[2024-09-26] MEDS: LOSARTAN 25 MG TAB PO SCH (20:21)
[2024-09-26] MEDS: ATORVASTATIN 80 MG TAB PO SCH (20:21)
[2024-09-26] MEDS ORDERED: ATORVASTATIN 40 MG TAB PO SCH (21:00)
--- NOTE | 2024-09-26 23:13 | CC ---
CARDIAC CATHETERIZATION REPORT PROCEDURES PERFORMED: 1. Left heart catheterization and coronary angiography. 2. Percutaneous transluminal coronary angioplasty and stenting of distal right coronary artery with 2 drug-eluting stents, post dilated with a 3.5 caliber NC Trek balloon. 3. Intravascular ultrasound of distal right coronary artery. PERFORMED BY: Dr. Arnaldo Tovar. ANESTHESIA: Moderate conscious sedation time was 108 minutes. The patient was administered Versed. Oxygen saturation, hemodynamics, and EKG were monitored closely. CLINICAL INFORMATION: Mr. Brad Amos is a 63-year-old gentleman without significant past medical history. He does not see a doctor on a regular basis. 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 CPR was performed by his and then EMS arrived. He was found in ventricular fibrillation, was shocked twice with return of spontaneous circulation and was brought here. He had no chest pain when I saw him other than chest wall tenderness where he was shocked. The EKG revealed sinus mechanism, but no changes to suggest any ST elevation or any ST- segment changes. There was modest troponin elevation. Echo revealed inferior wall hypokinesia. He was advised prompt cardiac cath and PCI. He was placed on amiodarone bolus and drip without any further arrhythmia. PROCEDURE NOTE: Under local anesthesia and strict aseptic precautions with the help of ultrasound, access into the right radial artery was achieved. A 3.5 curved left and a 4.0 curved right Lacey catheters were used to perform coronary angiography and the same right catheter was used to check LV pressures. Following this, I performed PCI of a subtotally occluded distal RCA with 2 drug-eluting stents. Following this, a TR band was applied and the patient was sent to the room in a stable condition. He was already on heparin bolus and drip, but he received additional 6500 units of heparin and ACT was 234 and subsequently was very high and then at the end of the procedure was about 200. He received 180 mg of Brilinta and he will be on aspirin and Brilinta combination for 1 year without interruption. CARDIAC CATHETERIZATION FINDINGS: The left ventricular end-diastolic pressure was 6 mmHg without any gradient across the aortic valve. CORONARY ANGIOGRAPHY FINDINGS: Right coronary artery is a dominant vessel, has a lot of ectasia, minor irregularities throughout in the proximal half and right after it curved, there is a 70% narrowing and beyond it a 99% stenosis with sluggish flow and the distal branches are not well opacified. Distal RCA well before bifurcation has a 99% stenosis. Proximal RCA has minor irregularities of 30% to 40%. Left main coronary artery: Short patent vessel. No significant disease. Bifurcates into LAD and circumflex. Left anterior descending coronary artery: Good caliber vessel, extends along the anterior wall, gives off septal and diagonal branches, runs all the way to the apex supplying a sizable amount of myocardium. Minor irregularities. No significant disease. Left posterior circumflex coronary artery is a nondominant vessel, fair caliber, has a proximal 50% to 55% narrowing with ectasia after which the caliber improves, and gives off a circumflex marginal branch that runs laterally, supplies a fair amount of myocardium and also a branch in the AV groove. The circumflex therefore has a 50% proximal lesion eccentric. LV-gram was not performed. FINAL IMPRESSION: This patient has normal filling pressures. No gradient. Right-dominant system with a 99% distal RCA disease and 50% proximal circumflex disease. RCA is dominant. LAD has no significant disease. Left main is free of significant disease. RECOMMENDATIONS: I recommended PCI of RCA that was performed in the same setting. PCI PROCEDURE DETAILS: I used a JR4 guide catheter with a run-through wire and a super cross. With this combination, I crossed the lesion. Wire was kept distally. A 2.5 caliber NC Trek balloon was used to pre-dilate the lesion after using a 2.25 balloon initially. I then deployed a 28 mm long 3.0 caliber stent distally and a 3.25 caliber 23 mm long Xience stent proximally. Intravascular ultrasound revealed that the stent was fully expanded, but the relative comparative diameter was slightly larger. I therefore went with a 3.5 caliber NC Trek balloon and dilated the entire stented segment except the distal 1/3rd. Excellent angiographic result was achieved. I had difficulty going back with the NC Trek balloon because of tortuosity, but excellent angiographic result without complication was achieved. The patient had no chest discomfort. There was a FRANCISCO-3 flow. Distal branches of RCA however were diffusely diseased and small. The results were discussed with the patient and family and he was sent to the room in a stable condition after taking the sheath out and TR band was applied. Excellent angiographic result without complication was achieved. Intravascular ultrasound revealed full expansion and excellent apposition. MMKATIA / BAILEEN: [id number] /
[2024-09-27 05:49] LABS: Basophils # (A) 0.02 10*3/uL (0.00-0.10); Basophils % (A) 0.3 %; Eosinophils # (A) 0.04 10*3/uL (0.04-0.35); Eosinophils % (A) 0.7 %; HCT 34.7 % (39.6-50.0); HGB 11.5 g/dL (13.0-17.0); Lymphocytes # (A) 1.28 10*3/uL (0.90-5.00); Lymphocytes % (A) 21.3 %; MCH 29.9 pg (27.0-32.0); MCHC 33.1 g/dL (32.0-37.0); MCV 90.4 fL (80.0-97.0); Mean Platelet Volume 10.9 fL (9.5-12.2); Monocytes # (A) 0.56 10*3/uL (0.20-1.00); Monocytes % (A) 9.3 %; Neutrophils # (A) 4.07 10*3/uL (1.80-7.70); Neutrophils % (A) 67.9 %; Platelet Count 157 10*3/uL (140-440); RBC 3.84 10*6/uL (4.40-5.60); RDW 14.4 % (11.5-14.5)
[2024-09-27 06:10] LABS: ALT 171 U/L (4-49); AST 136 U/L (17-59); African American GFR (CKD) >90 (>60 ml/min/1.73 sqM); Alkaline Phosphatase 48 U/L (38-126); Anion Gap 5 mmol/L; Blood Urea Nitrogen 12 mg/dL (9-20); Calcium 8.4 mg/dL (8.4-10.2); Carbon Dioxide 27 mmol/L (22-30); Chloride 103 mmol/L (98-107); Glucose 97 mg/dL (74-99); Magnesium 2.2 mg/dL (1.6-2.3); Non-African American GFR(CKD) 78 (>60 ml/min/1.73 sqM); Sodium 135 mmol/L (137-145); Total Bilirubin 0.8 mg/dL (0.2-1.3); Total Protein 5.6 g/dL (6.3-8.2)
[2024-09-27] MEDS: AMIODARONE 450 MG in DEXTROSE 5% IN WATER 250 ML IV SCH (06:43)
[2024-09-27] MEDS: AMIODARONE 200 MG TAB PO SCH (08:59)
[2024-09-27 12:05] VITALS: BMI 31.5
--- NOTE | 2024-09-27 13:15 | P.PN ---
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 He has no significant past medical history. History of tobacco use and quit 15 years ago. He uses alcohol daily and marijuana use. We have been asked to evaluate the patient for VT, CHF, CPA. History is obtained from the patient's that for 24 hours before his episode, he was taking Pepto-Bismol. 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 By 7:00 in the evening they were sitting down to the table to eat dinner. He lost consciousness and she called 911 and had also started CPR. When EMS arrived, patient was found to be in ventricular fibrillation and he was defibrillated and went into ventricular tachycardia and was defibrillated a second time. He did have return of pulse and woke up by the time he arrived to the emergency center. Patient does not remember anything after he sat down to eat dinner. He does state that he had some left-sided hip or lumbar area discomfort yesterday. Patient evaluated in the emergency center and recommendations are for cardiac catheterization which he is agreeable to move forward with. Patient's was contacted on the phone by Dr. AISHWARYA Tovar and he obtained history and updated her regarding patient's results and recommendations for cardiac catheterization. Blood pressure 103/75, heart rate 66, pulse ox 93% on room air. Patient has been started on amiodarone and IV heparin. -EKG: Sinus rhythm, nonspecific T wave abnormalities, occasional PVC. -Chest x-ray: Mild right upper lobe infiltrate appears to be present. Correlate for pneumonia. Small bilateral pleural effusions. -CTA chest: No acute pulmonary embolism. Lung nodule posterior left lung. Diffuse increased lung markings in the right midlung. Pulmonary fibrosis, neoplasm or possible infectious etiology could be considered. - Liver ultrasound: Hepatomegaly with fatty infiltration. -Laboratory studies: Troponins 2.19, 2.49, 5.29. AST 333, ALT 316. Sodium 136, potassium 4.4, creatinine 1.04. Triglycerides 122, cholesterol 212, LDL 147. WBC 10.7, hemoglobin 14.4. -Home cardiac medications: None 09/27 Patient seen and examined. Yesterday, patient underwent cardiac catheterization with Dr. AISHWARYA Tovar which revealed coronary artery disease with 99% distal RCA disease, 50% proximal circumflex disease. LAD with no significant disease. Lef t main free of significant disease. Patient subsequently underwent PCI of the RCA. This morning, patient denies chest pain. Discussed need for LifeVest with the patient due to the episode of V. tach. Patient has been on amiodarone drip which we will transition to oral. Echocardiogram reveals technically difficult study with EF 50 to 55% trace mitral regurgitation. Blood pressure 109/73, hear t rate 67, pulse ox 97% on room air. Physical examination: Gen: This is a 63-year-old male in no acute distress. VS: reviewed HEENT: Head is atraumatic, normocephalic. Pupils equal, round. Sclerae is anicteric. NECK: Supple. No JVD. LUNGS: Clear to auscultation. No wheezes or rhonchi. No intercostal retractions. HEART: Regular rate and rhythm. No murmur. ABDOMEN: Soft No tenderness. EXTREMITIES: No pedal edema. No calf tenderness. NEUROLOGICAL: Patient is awake, alert and oriented x3. Assessment: Cardiac arrest with ventricular fibrillation followed by ventricular tachycardia status post defibrillation x 2 with ROSC NSTEMI Acute hypoxic respiratory failure Elevated liver function test Remote history of tobacco use Daily alcohol use Marijuana use Plan: Discontinue amiodarone IV and start patient on oral 400 mg twice daily for 1 week then 200 mg twice daily for 1 week and then 200 mg daily Continue patient on aspirin 81 mg daily, atorvastatin 40 mg at bedtime, metoprolol tartrate 25 mg twice daily Obtain LifeVest for patient due to V. tach/V-fib Continue telemetry monitoring Further recommendations to follow based upon clinical course Thank you kindly for this consultation. Nurse practitioner note has been reviewed, I agree with documented findings and plan of care. Patient was seen and examined. Objective - Vital Signs Vital signs: Vital Signs Temp 98 F 09/27/24 07:55 Pulse 77 09/27/24 07:55 Resp 20 09/27/24 07:55 BP 99/61 09/27/24 07:55 Pulse Ox 98 09/27/24 07:55 FiO2 Intake & Output 09/26/24 09/27/24 09/27/24 18:59 06:59 18:59 Intake Total 1044.904 225 0 Output Total 575 Balance 1044.904 -350 0 Weight 113.398 kg 105.4 kg Intake: IV 710 Intake, IV Titration 334.904 225 Amount Amiodarone 450 mg In 231.394 Dextrose 5% in Water 250 ml @ 0.5 MG/MIN 16.667 mls/hr IV .Q15H [facility] Rx#: [id number] Heparin Sod,Pork in 0.45% 103.51 NaCl 25,000 unit In 0.45 % NaCl 1 250ml.bag @ 8. 819 UNITS/KG/HR 10.001 mls/hr IV .Q24H [facility] Rx#: [id number] Sodium Chloride 0.9% 1, 225 000 ml @ 75 mls/hr IV . [id number] [facility] Rx#:[id number] Oral 0 Output: Urine 575 Other: Voiding Method Urinal # Voids 1 - Labs CBC & Chem 7: 09/27/24 05:09 09/27/24 05:09 Labs: Abnormal Lab Results - Last 24 Hours (Table) 09/26/24 09/27/24 09/27/24 Range/Units 03:40 05:09 05:09 RBC 3.84 L (4.40-5.60) 10*6/uL Hgb 11.5 L (13.0-17.0) g/dL Hct 34.7 L (39.6-50.0) % Sodium 135 L (137-145) mmol/L AST 136 H (17-59) U/L ALT 171 H (4-49) U/L Total Protein 5.6 L (6.3-8.2) g/dL Albumin 3.0 L (3.5-5.0) g/dL Cholesterol 212.00 H (0.00-200.00) mg/dL LDL Cholesterol, Calc 147.3 H (0.0-131.0) mg/dL
--- NOTE | 2024-09-27 13:19 | P.PN ---
Subjective Progress Note Date: 09/27/24 Subjective: Patient seen and examined at bedside. No acute events overnight. Pertinent positives and negatives as discussed above, a complete review of systems was performed and all other systems are negative. Vitals Signs Reviewed. General: Nontoxic, no distress, appears at stated age Derm: Warm, dry Head: Atraumatic, normocephalic, symmetric Eyes: EOMI, no lid lag, anicteric sclera Mouth: No lip lesion, mucus membranes moist Cardiovascular: S1S2 reg, no murmur Lungs: CTA bilateral, no rhonchi, no rales, no accessory muscle use Abdominal: Soft, nontender to palpation, no guarding, no appreciable organomegaly Ext: No gross muscle atrophy, no edema, no contractures Neuro: CN II-XI grossly intact, no focal neuro deficits Psych: Alert, oriented, appropriate affect Data Reviewed Today: Pertinent Labs: WBC 6, hemoglobin 11.5, sodium 135, creatinine 1.03, total bili 0.8, AST 136, ALT 171, ALP 48 Imaging: EKG independently interpreted from this morning, shows normal sinus rhythm Assessment and Plan: Active: Acute NSTEMI status post RCA stent Coronary artery disease V-fib/V. tach cardiac arrest status post defibrillation x 2 Lactic acidosis, resolved Transaminitis, likely ischemic hepatitis Hepatic steatosis - Cardiology note reviewed, discontinued IV amiodarone, started on amiodarone 400 twice daily, will be continued on taper, will be discharged tomorrow with LifeVest - Aspirin 81 mg daily, atorvastatin 80 mg nightly, Brilinta 90 mg twice daily - Patient underwent cardiac cath, report pending - Currently on heparin drip, monitor APTT, monitor for bleeding - Continue metoprolol 25 twice daily, Protonix IV 40 daily - No right upper quadrant pain lung nodule - Outpatient follow-up DVT ppx: Subcu heparin Code status: Full code Anticipated discharge place: Pending clinical course Anticipated discharge time: Pending clinical course Objective - Vital Signs Vital signs: Vital Signs Temp 97.8 F 09/27/24 11:05 Pulse 64 09/27/24 12:54 Resp 18 09/27/24 12:54 BP 109/73 09/27/24 11:05 Pulse Ox 97 09/27/24 11:05 FiO2 Intake & Output 09/26/24 09/27/24 09/27/24 18:59 06:59 18:59 Intake Total 1044.904 225 100 Output Total 575 Balance 1044.904 -350 100 Weight 113.398 kg 105.4 kg 105.4 kg Intake: IV 710 Intake, IV Titration 334.904 225 Amount Amiodarone 450 mg In 231.394 Dextrose 5% in Water 250 ml @ 0.5 MG/MIN 16.667 mls/hr IV .Q15H [facility] Rx#: [id number] Heparin Sod,Pork in 0.45% 103.51 NaCl 25,000 unit In 0.45 % NaCl 1 250ml.bag @ 8. 819 UNITS/KG/HR 10.001 mls/hr IV .Q24H [facility] Rx#: [id number] Sodium Chloride 0.9% 1, 225 000 ml @ 75 mls/hr IV . [id number] [facility] Rx#:[id number] Oral 100 Output: Urine 575 Other: Voiding Method Urinal Urinal # Voids 1 - Labs CBC & Chem 7: 09/27/24 05:09 09/27/24 05:09 Labs: Abnormal Lab Results - Last 24 Hours (Table) 09/27/24 09/27/24 Range/Units 05:09 05:09 RBC 3.84 L (4.40-5.60) 10*6/uL Hgb 11.5 L (13.0-17.0) g/dL Hct 34.7 L (39.6-50.0) % Sodium 135 L (137-145) mmol/L AST 136 H (17-59) U/L ALT 171 H (4-49) U/L Total Protein 5.6 L (6.3-8.2) g/dL Albumin 3.0 L (3.5-5.0) g/dL
--- NOTE | 2024-09-27 13:46 | P.PN ---
Subjective Progress Note Date: 09/27/24 Patient is a 63-year-old male with little known past medical history, he does not follow with a primary care provider. Not currently prescribed any medications at home. Patient went unresponsive at the kitchen table last night, EMS was called immediately. His moved him to the floor and started CPR. When EMS arrived, patient was found to be in ventricular fibrillation/ventricular tachycardia, defibrillated x 2. Following return of spontaneous circulation patient became responsive and alert. He was not intubated. He was brought into the emergency department late last night. EKG showing normal sinus rhythm, rate 80 bpm, occasional unifocal PVCs, without any acute ST segment elevations or T wave inversions. He was loaded with IV amiodarone, and started on the protocol. Also, started on IV heparin per cardiology recommendations. Labs including a CBC which was grossly unremarkable. CMP: Low sodium 138, potassium 4.4, chloride 105, serum bicarb 23, BUN 15, creatinine 1.15, glucose 159. Lactic was 4.4 is down to 1.9 did receive a 1 L normal saline bolus in the ED. Magnesium 2. AST 413, ALT 369, ALP 57. Troponin elevated at 2.19. NT proBNP 476. Currently being evaluated in trauma bay 1. He is awake and alert and oriented. Continues on IV amiodarone at 1 mg/min as well as IV heparin per protocol. Hemodynamics are currently stable. Not on any vasopressors. Denies any current chest pain; although, experiencing intermittent right-sided chest pain, as well as, associat ed right arm aching over the last 2 to 3 days. Did recall episode of heartburn, nausea, and diaphoresis preceding his cardiac arrest. No significant lower extremity edema. Denies any shortness of breath, cough, sputum production, hemoptysis. States he was recently treated for bronchitis on outpatient basis by a local urgent care center 2 to 3 weeks ago with a combination of antibiotics and steroids. Chest CTA done in the emergency department did not show any acute pulmonary embolism. Left posterior lower lung nodule measuring approximately 1.2 cm. Increased interstitial right mid lung markings. No pneumothoraces, pleural effusions. current vital signs: Afebrile, heart rate 70 bpm, blood pressure 100/70 mmHg, nontachypneic, SpO2 recorded at 97% on 2 L/min nasal cannula. On 09/27/2024, the patient is being seen for a follow-up. The patient is on room air oxygen. The patient underwent a cardiac catheterization yesterday postcardiac arrest and the patient was found to have significant disease in the RCA approaching 99% distally and proximally there was stenosis in the order of 30 to 40%. Left main was normal. LAD was normal. Circumflex involved 50 to 55% narrowing. The patient underwent stenting of the RCA without any complications. Noted the distal branches of the RCA remain diffusely diseased and small. The patient is currently on the cardiac floor. He is on aspirin and Brilinta. He was started on Lipitor 80 mg p.o. daily, amiodarone 400 mg p.o. twice daily and metoprolol 25 mg p.o. twice a day. Echocardiogram showed a preserved LV function and there is no significant valvular abnormalities. Ventricular ejection fraction was estimated to be around 50 to 55% and the patient had inferior and inferior septal hypokinesis. Blood work from today shows a white cell count of 6 with a hemoglobin of 11.5 and a platelet count of 157. BUN is 12 with a creatinine 1.02 and sodium is at 135 and potassium level is at 4.0. He is complaining of some soreness over the anterior chest. No other complaints otherwise for now. Considering life vest versus defibrillator. Objective - Vital Signs Vital signs: Vital Signs Temp 98 F 09/27/24 07:55 Pulse 77 09/27/24 07:55 Resp 20 09/27/24 07:55 BP 99/61 09/27/24 07:55 Pulse Ox 98 09/27/24 07:55 FiO2 Intake & Output 09/26/24 09/27/24 09/27/24 18:59 06:59 18:59 Intake Total 1044.904 225 0 Output Total 575 Balance 1044.904 -350 0 Weight 113.398 kg 105.4 kg Intake: IV 710 Intake, IV Titration 334.904 225 Amount Amiodarone 450 mg In 231.394 Dextrose 5% in Water 250 ml @ 0.5 MG/MIN 16.667 mls/hr IV .Q15H [facility] Rx#: [id number] Heparin Sod,Pork in 0.45% 103.51 NaCl 25,000 unit In 0.45 % NaCl 1 250ml.bag @ 8. 819 UNITS/KG/HR 10.001 mls/hr IV .Q24H [facility] Rx#: [id number] Sodium Chloride 0.9% 1, 225 000 ml @ 75 mls/hr IV . [id number] [facility] Rx#:[id number] Oral 0 Output: Urine 575 Other: Voiding Method Urinal # Voids 1 - Exam GENERAL EXAM: Alert, 63-year-old male, comfortable in no apparent distress. The patient is currently on room air oxygen. HEAD: Normocephalic and atraumatic EYES: Normal reaction of pupils, equal size. NOSE: Clear with pink turbinates. THROAT: No erythema or exudates. NECK: No masses, no JVD. CHEST: No chest wall deformity. LUNGS: Equal air entry with no crackles, wheeze, rhonchi or dullness. conversational dyspnea or accessory muscle use.. CVS: S1 and S2 normal with no audible murmur, regular rhythm. No extra heart sounds ABDOMEN: No hepatosplenomegaly, active bowel sounds, no guarding or rigidity. SPINE: No scoliosis or deformity SKIN: No rashes CENTRAL NERVOUS SYSTEM: No focal deficits, tone is normal in all 4 extremities. EXTREMITIES: There is no peripheral edema, clubbing, or cyanosis. Peripheral pulses are intact. - Labs CBC & Chem 7: 09/27/24 05:09 09/27/24 05:09 Labs: Abnormal Lab Results - Last 24 Hours (Table) 09/27/24 09/27/24 Range/Units 05:09 05:09 RBC 3.84 L (4.40-5.60) 10*6/uL Hgb 11.5 L (13.0-17.0) g/dL Hct 34.7 L (39.6-50.0) % Sodium 135 L (137-145) mmol/L AST 136 H (17-59) U/L ALT 171 H (4-49) U/L Total Protein 5.6 L (6.3-8.2) g/dL Albumin 3.0 L (3.5-5.0) g/dL Assessment and Plan Assessment: Witnessed yah-yw-[place] cardiac arrest, presenting rhythm when EMS arrived was ventricular fibrillation/ventricular tachycardia, defibrillated x 2, and ROSC was achieved in the field. Coronary artery disease status post acute non-ST segment elevation myocardial infarction. Postcardiac catheterization and stenting of the RCA x 2. There is diffuse disease involving the RCA distally and mild disease involving the circumflex. The echocardiogram shows a preserved LV function. Lactic acidemia, improved Acute hypoxemic respiratory failure, currently on 2 L/min nasal cannula, chest CTA did not show any acute pulmonary embolism. No pneumothoraces or pleural effusions. Left posterior lung nodule measuring approximately 1.2 cm. Increased interstitial right mid lung markings. Former tobacco smoker, quit approximately 15 years ago Obesity, BMI of 33.9 kg/m Plan: The patient is currently on aspirin and Brilinta Continue metoprolol Continue oral amiodarone Echocardiogram shows a preserved LV function No signs of any anoxic encephalopathy Soreness in the chest related to recent CPR Considering a LifeVest versus AICD placement Reviewed the CAT scan of the chest. The patient has emphysematous changes involving the upper lobes. The pulmonary discussed in the left lung base is nonspecific and needs to be followed up on outpatient basis. Awaiting further recommendations from cardiology Continue high-dose statins Will continue to follow. Time with Patient: Greater than 30
[2024-09-27] MEDS: HEPARIN SODIUM,PORCINE 5,000 UNIT/ML 1 ML VIAL SQ SCH (15:48)
--- NOTE | 2024-09-27 19:53 | P.EPCON ---
Electrophysiology Consult - EP Consult Electrophysiology Consult: This is Dr. Wright dictating an electrophysiology consult on this patient The patient was interviewed and examined IMPRESSION / ASSESSMENT: [id number] cardiac arrest. Initial rhythm was ventricular fibrillation Following defibrillation, monomorphic VT with right bundle branch block and right superior axis noted, 240 beats a minute, requiring defibrillation Successful defibrillation to sinus rhythm Non-Q wave myocardial infarction likely given the presentation of angina for 2 to 3 days prior to the episode, inferior inferoseptal scar on echo with relatively preserved systolic function of 50-55% Tandem lesions in the distal RCA of 70% followed by 99% with sluggish blood flow distally Stenting to the distal RCA, culprit vessel for ischemia management RV enlargement Dyslipidemia elevated LDL, increased BMI, prediabetic PLAN: I had a detailed discussion with the patient. I spoke to Dr. Alaniz regarding this The patient's cardiac arrest had a clear ischemic etiology. However following the first shock he went into a fast monomorphic VT This VT originated on the inferior wall of the left ventricle, inferior lateral- apical exit consistent with distal RCA stenosis and inferior scar Relatively preserved LV function, lower limits of normal, 50-55% ejection fraction I would recommend a LifeVest for 3 to 4 months. I would stop amiodarone after 1 week, maximize beta-blockers today, likely discharge tomorrow. Medical manag ement of atherosclerosis and very mild cardiomyopathy with inferior scar Watch for nonsustained VT. If he continues to experience runs of nonsustained VT the rhythm detected on the LifeVest, proceed with diagnostic study Otherwise, in the absence of any nonsustained VT After 6 -8 weeks, exercise stress test to look for any exercise-induced arrhythmias and a diagnostic EP study for restratification for any inducible VT from the inferior scar Decision regarding internal defibrillator based on the results of these tests Avoid amiodarone, maximize beta-blockers, statin therapy, dual antiplatelet therapy and add MARGO inhibitors/angiotensin receptor blockers subsequent HPI Patient had an lhg-fw-aigsyfbl cardiac arrest. His started CPR. When EMS arrived he was in VF. He was defibrillated. Following that he developed fast VT 240 bpm This had a right bundle branch block morphology with a right superior axis consistent with inferior apical/lateral exit He was successfully defibrillated once again to sinus rhythm. He was then treated with IV amiodarone brought to the ER First twelve-lead EKG showed PVCs and [address] depression in the lateral precordial leads 2D echo showed an inferoseptal hypokinesis with an left ventricular ejection fraction of 50-55% Moderate RV dilation On upon direct questioning he had symptoms consistent with angina for 48 to 72 hours prior to the episode. Abnormal troponins but no ST elevation Subsequently underwent cardiac catheterization which revealed a right dominant system with a 99% distal RCA lesion. Proximal to that there was a 70% stenosis. Sluggish flow was noted Proximal RCA had a 40% stenosis Left circumflex 50% stenosis He underwent coronary stenting and PTCA of the vessel beyond the occlusion He is now on medical management as well as on oral amiodarone ROS: No fever chills or rigors, no cough, phlegm or expectoration, no nausea, vomiting or diarrhea, no hematuria, dysuria, no musculoskeletal complaints, no strokes or seizures, no skin lesions. EXAMINATION: 107/69 mmHg, pulse rate in the 70s Heart sounds are normal no murmurs gallops or rubs Breath sounds are clear no rhonchi no crackles Central obesity noted REVIEW OF LABS, ECG & MEDICAL DATA Hemoglobin 11.5, normal electrolytes Hemoglobin A1c 6.1 LDL 147, total cholesterol 212, HDL 40 Abnormal troponins of 2.2 and 5.3 serially Twelve-lead EKG does not show any ST elevation SD
[2024-09-27] MEDS: METOPROLOL TARTRATE 50 MG TAB PO SCH (20:15)
[2024-09-27] MEDS: ACETAMINOPHEN TAB 325 MG TAB PO PRN (20:15)
[2024-09-28 08:20] VITALS: BP 134/82; PULSE 79; RESP 14; TEMP 98.1
--- NOTE | 2024-09-28 09:39 | P.DS ---
Providers Date of admission: 09/25/24 21:35 Expected date of discharge: 09/28/24 Attending physician: Moy Morales MD Consults: 09/25/24 21:35 Consult Physician Urgent Consulting Provider: Tawanna Hernandez Consult Reason/Comments: VT,CF,CPA Do you want consulting provider notified?: Yes 09/25/24 23:18 Consult Physician Routine Consulting Provider: Andrew Yeung Consult Reason/Comments: icu Do you want consulting provider notified?: Yes 09/26/24 13:39 Consult Physician Routine Consulting Provider: [facility] Consult Reason/Comments: Post Interventional Patient Do you want consulting provider notified?: Already Contacted Primary care physician: Stated None Hospital Course: Discharge diagnoses: Acute NSTEMI status post RCA stent Coronary artery disease V-fib/V. tach cardiac arrest status post defibrillation x 2 Lactic acidosis, resolved Transaminitis, likely ischemic hepatitis Hepatic steatosis lung nodule Hospital Course: 63-year-old male with no known medical history arrived by EMS due to cardiac arrest. On admission: Vitals: Temperature 98 Fahrenheit, pulse rate 80, blood pressure 109/75, O2 saturation 98% on 2 L nasal cannula Labs: WBC 10.77, hemoglobin 14.4, platelet count 1 57,000, glucose 159, potassium 4.4, bicarb 23, BUN 15, creatinine 1.15, lactic acid 4.4, AST 413, ALT 369, troponin 2.19. Imaging: Chest x-ray showed mild right upper lobe infiltrate correlate for pneumonia and small bilateral pleural effusions. CT angiography showed no acute pulmonary embolism, lung nodule noted on posterior left lung, diffuse increased lung markings in the right midlung. EKG showed sinus rhythm with a rate of 80 bpm, OR interval 150 MS, PVCs noted, no ST-T changes, normal axis, QTc 361 MS. Patient taken to labeling strategist. Showed coronary artery disease with 99% distal RCA disease, 50% proximal circumflex disease. PCI to RCA. Patient being discharged home with lifevest. Possible ICD placement outpatient. Patient seen and examined today. Vital signs reviewed and stable. General: Nontoxic, no distress, appears at stated age Derm: Warm, dry Head: Atraumatic, normocephalic, symmetric Eyes: EOMI, no lid lag, anicteric sclera Mouth: No lip lesion, mucus membranes moist Cardiovascular: S1S2 reg, no murmur Lungs: CTA bilateral, no rhonchi, no rales, no accessory muscle use Abdominal: Soft, nontender to palpation, no guarding, no appreciable organomegaly Ext: No gross muscle atrophy, no edema, no contractures Neuro: CN II-XI grossly intact, no focal neuro deficits Psych: Alert, oriented, appropriate affect This summary and encounter took >30 mins. Patient discharged at 09/28/24 at 9:30. Patient Condition at Discharge: Stable Plan - Discharge Summary Discharge Rx Participant: No New Discharge Prescriptions: New Aspirin 81 mg PO DAILY #90 tab Ticagrelor [Brilinta] 90 mg PO BID #120 tab Atorvastatin [Lipitor] 80 mg PO HS #90 tab Metoprolol Tartrate [Lopressor] 50 mg PO BID #120 tab Amiodarone [Cordarone] 400 mg PO BID #14 tab Discharge Medication List Amiodarone [Cordarone] 400 mg PO BID #14 tab 09/28/24 [Rx] Aspirin 81 mg PO DAILY #90 tab 09/28/24 [Rx] Atorvastatin [Lipitor] 80 mg PO HS #90 tab 09/28/24 [Rx] Metoprolol Tartrate [Lopressor] 50 mg PO BID #120 tab 09/28/24 [Rx] Ticagrelor [Brilinta] 90 mg PO BID #120 tab 09/28/24 [Rx] Follow up Appointment(s)/Referral(s): Nikhil Tovar MD [STAFF PHYSICIAN] - 1 Week [facility],Medicine [NON-STAFF] - 1 Week Patient Instructions/Handouts: Heart Attack (DC) Activity/Diet/Wound Care/Special Instructions: Please see your PCP and Switch Box Installer. You will need defibrillator in the future. Discharge/Stand Alone Forms: Area PCPs Discharge Disposition: HOME SELF-CARE
--- NOTE | 2024-09-28 10:27 | P.PN ---
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 He has no significant past medical history. History of tobacco use and quit 15 years ago. He uses alcohol daily and marijuana use. We have been asked to evaluate the patient for VT, CHF, CPA. History is obtained from the patient's that for 24 hours before his episode, he was taking Pepto-Bismol. 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 By 7:00 in the evening they were sitting down to the table to eat dinner. He lost consciousness and she called 911 and had also started CPR. When EMS arrived, patient was found to be in ventricular fibrillation and he was defibrillated and went into ventricular tachycardia and was defibrillated a second time. He did have return of pulse and woke up by the time he arrived to the emergency center. Patient does not remember anything after he sat down to eat dinner. He does state that he had some left-sided hip or lumbar area discomfort yesterday. Patient evaluated in the emergency center and recommendations are for cardiac catheterization which he is agreeable to move forward with. Patient's was contacted on the phone by Dr. AISHWARYA Tovar and he obtained history and updated her regarding patient's results and recommendations for cardiac catheterization. Blood pressure 103/75, heart rate 66, pulse ox 93% on room air. Patient has been started on amiodarone and IV heparin. -EKG: Sinus rhythm, nonspecific T wave abnormalities, occasional PVC. -Chest x-ray: Mild right upper lobe infiltrate appears to be present. Correlate for pneumonia. Small bilateral pleural effusions. -CTA chest: No acute pulmonary embolism. Lung nodule posterior left lung. Diffuse increased lung markings in the right midlung. Pulmonary fibrosis, neoplasm or possible infectious etiology could be considered. - Liver ultrasound: Hepatomegaly with fatty infiltration. -Laboratory studies: Troponins 2.19, 2.49, 5.29. AST 333, ALT 316. Sodium 136, potassium 4.4, creatinine 1.04. Triglycerides 122, cholesterol 212, LDL 147. WBC 10.7, hemoglobin 14.4. -Home cardiac medications: None 09/27 Patient seen and examined. Yesterday, patient underwent cardiac catheterization with Dr. AISHWARYA Tovar which revealed coronary artery disease with 99% distal RCA disease, 50% proximal circumflex disease. LAD with no significant disease. Lef t main free of significant disease. Patient subsequently underwent PCI of the RCA. This morning, patient denies chest pain. Discussed need for LifeVest with the patient due to the episode of V. tach. Patient has been on amiodarone drip which we will transition to oral. Echocardiogram reveals technically difficult study with EF 50 to 55% trace mitral regurgitation. Blood pressure 109/73, hear t rate 67, pulse ox 97% on room air. 09/28 Patient seen and examined. Yesterday we ordered a LifeVest for the patient. Patient has had an evaluation by electrophysiology with recommendations for L ifeVest for 3 to 4 months, stop amiodarone after 1 week, maximize beta-blockers. If patient has episodes of V. tach while wearing the LifeVest, Dr. Wright will plan on EP study. Otherwise in the absence of nonsustained ventricular tachycardia, after 68 weeks, exercise stress test to look for exercise-induced arrhythmias and a diagnostic EP study for restratification for inducible V. tach from the inferior scar. The patient denies chest pain. He did not wear the LifeVest last evening. Discussed in detail that patient will need to limit his work and plan for 15-minute nonstrenuous walks 3 times daily. Patient will have follow-up in the office in plan for stress testing as well. Blood pressure 134/82, heart rate 79, pulse ox 96% on room air. Repeat blood work reveals hemoglobin 9.5, sodium 135, creatinine 1.02. Physical examination: Gen: This is a 63-year-old male in no acute distress. VS: reviewed HEENT: Head is atraumatic, normocephalic. Pupils equal, round. Sclerae is anicteric. NECK: Supple. No JVD. LUNGS: Clear to auscultation. No wheezes or rhonchi. No intercostal ret ractions. HEART: Regular rate and rhythm. No murmur. ABDOMEN: Soft No tenderness. EXTREMITIES: No pedal edema. No calf tenderness. NEUROLOGICAL: Patient is awake, alert and oriented x3. Assessment: Cardiac arrest with ventricular fibrillation followed by ventricular tachycardia status post defibrillation x 2 with ROSC Monomorphic V. tach on EMS strips NSTEMI Acute hypoxic respiratory failure Elevated liver function test Remote history of tobacco use Daily alcohol use Marijuana use Plan: Continue oral amiodarone 400 mg twice daily for 7 days and then discontinue Continue patient on aspirin 81 mg daily, atorvastatin 40 mg at bedtime, metoprolol tartrate increased to 50 mg twice daily LifeVest for patient due to V. tach/V-fib Patient is cleared for discharge from cardiology will follow-up in the office with Dr. Tovar in 1 week Nurse practitioner note has been reviewed, I agree with documented findings and plan of care. Patient was seen and examined. Objective - Vital Signs Vital signs: Vital Signs Temp 97.8 F 09/28/24 04:47 Pulse 77 09/28/24 04:47 Resp 16 09/28/24 04:47 BP 114/73 09/28/24 04:47 Pulse Ox 95 09/28/24 04:47 FiO2 Intake & Output 09/27/24 09/28/24 09/28/24 18:59 06:59 18:59 Intake Total 218 Balance 218 Weight 105.4 kg 104.2 kg Intake: Oral 218 Other: Voiding Method Urinal Urinal # Voids 1 - Labs CBC & Chem 7: 09/27/24 05:09 09/27/24 05:09
== END 2024-09-28 12:05 | disposition home or self-care (01) | DRG 321 ==
LOC: EC 20:21 → 2SICU 21:35 → 3SCARD 09-26 13:27
PROVIDERS: ADMIT Internal Medicine; ATTEND Internal Medicine
PROC: 4A023N7 Measurement of Cardiac Sampling and Pressure, Left Heart, Percutaneous Approach (ICD-10-PCS; principal; 2024-09-26 11:05)
PROC: B2111ZZ Fluoroscopy of Multiple Coronary Arteries using Low Osmolar Contrast (ICD-10-PCS; principal; 2024-09-26 11:05)
PROC: 027035Z Dilation of Coronary Artery, One Artery with Two Drug-eluting Intraluminal Devices, Percutaneous Approach (ICD-10-PCS; principal; 2024-09-26 11:05)
DX: I21.4 Non-ST elevation (NSTEMI) myocardial infarction (principal); I46.9 Cardiac arrest, cause unspecified; I49.01 Ventricular fibrillation; J96.01 Acute respiratory failure with hypoxia; K72.00 Acute and subacute hepatic failure without coma; E66.9 Obesity, unspecified; K76.0 Fatty (change of) liver, not elsewhere classified; I47.20 Ventricular tachycardia, unspecified; E87.20 Acidosis, unspecified; I45.10 Unspecified right bundle-branch block; R91.1 Solitary pulmonary nodule; E78.5 Hyperlipidemia, unspecified; I25.10 Atherosclerotic heart disease of native coronary artery without angina pectoris; I49.3 Ventricular premature depolarization; R73.03 Prediabetes; Z68.33 Body mass index [BMI] 33.0-33.9, adult; Z79.82 Long term (current) use of aspirin; Z79.899 Other long term (current) drug therapy; Z87.891 Personal history of nicotine dependence; Z87.01 Personal history of pneumonia (recurrent)
CPT/HCPCS: 36415; 71045; 71275; 76705; 80053; 80061; 83036; 83605; 83735; 83880; 84100; 84443; 84484; 85025; 85610; 85730; 92978; 93005; 93306; 93458; 96365; 96366; 96368; 96375; 96376; 99291

== ENCOUNTER → 2024-10-04 | Outpatient (CLI) | payer BC ==
[2024-10-04 15:45] LABS: Blood Urea Nitrogen 17.1 mg/dL (9.0-27.0); Carbon Dioxide 23.9 mmol/L (21.6-31.8); Chloride 103 mmol/L (96-109); Potassium 4.7 mmol/L (3.5-5.5); Sodium 139 mmol/L (135-145)
[2024-10-04 20:38] LABS: HCT 44.2 % (39.6-50.0); HGB 13.9 g/dL (13.0-17.0); MCH 28.5 pg (27.0-32.0); MCHC 31.4 g/dL (32.0-37.0); MCV 90.8 FL (80.0-97.0); Mean Platelet Volume 10.8 FL (9.5-12.2); NRBC Per 100 WBC 0 X 10*3/uL (0.00-0.01); Platelet Count 333 X 10*3/uL (140-440); RBC 4.87 X 10*6/uL (4.40-5.60); RDW 14.1 % (11.5-14.5); WBC 7.16 X 10*3/uL (4.50-10.00)
== END | disposition home or self-care (01) ==
LOC: LABPAT 10:52
PROVIDERS: ATTEND Internal Medicine
DX: Z01.812 Encounter for preprocedural laboratory examination (principal); I25.2 Old myocardial infarction
CPT/HCPCS: 80051; 82565; 84520; 85027

== ENCOUNTER 2024-10-08 08:41 | Day surgery (SDC) | payer BC ==
[~2024-10-08 08:41] MED LIST: ALPRAZolam 0.25 MG TAB PO PRN; ALPRAZolam 0.5 MG TAB PO PRN; ASPIRIN 325 MG TAB PO STA; ATORVASTATIN 80 MG TAB PO STA; NITROGLYCERIN SL TABS 0.4 MG TAB SUBLINGUAL PRN; SODIUM CHLORIDE 0.9% 1,000 ML in EMPTY BAG 1 BAG IV SCH
[2024-10-08] MEDS: IV FLUID CONTINUATION 1,000 ML IV ONE (09:28)
[2024-10-08 09:29] VITALS: RESP 18; TEMP 97
[2024-10-08] MEDS: HEPARIN SODIUM,PORCINE (1 ML) 2,500 UNIT in SODIUM CHLORIDE 0.9% 250 ML IRRIGATION PRN (10:15)
[2024-10-08] MEDS: HEPARIN SODIUM,PORCINE 10,000 UNIT in SODIUM CHLORIDE 0.9% 1,000 ML IRRIGATION PRN (10:15)
[2024-10-08] MEDS: ASPIRIN 81 MG PO ONE (10:16)
[2024-10-08] MEDS: MIDAZOLAM 2 MG/2 ML VIAL IVP ONE (10:26)
[2024-10-08] MEDS: LIDOCAINE 1% INJ 10MG/ML (20 ML MDV) SQ ONE (10:27)
[2024-10-08] MEDS: VERAPAMIL SYRINGE (5 MG/10 ML) INTRAARTER ONE (10:28)
[2024-10-08] MEDS: HEPARIN SODIUM 1,000 UN/ML (10ML VL) IVP ONE (10:30)
[2024-10-08] MEDS: NITROGLYCERIN 1000MCG/10ML SYRINGE INTRACORON ONE (10:51)
[2024-10-08] MEDS: SODIUM CHLORIDE 0.9% 1,000 ML IV ONE (10:52)
[2024-10-08] MEDS: IOPAMIDOL-300 100ML BTL INJ ONE (10:57)
--- NOTE | 2024-10-08 11:10 | P.CARDCATH ---
Date of Procedure: 10/08/24 Description of Procedure: History: This is a 63-year-old gentleman was admitted to the hospital with ventricular fibrillation and ventricular tachycardia on 25 September and I performed on 26 September stenting of a subtotally occluded RCA. He had a moderate disease in circumflex and I advised elective IFR to be performed today after checking the patency of RCA. LAD did not have significant disease in left main was free of significant disease. Risk benefits options rationale were explained. He has a LifeVest and he is scheduled to see and have a EP study in first week of November. He understood all details and wished to proceed with the procedure. Procedure: #1 left heart catheterization and coronary angiography #2 iFR assessment of left circumflex coronary artery proximal lesion. Procedure Details: The risks, benefits, complications, treatment options, and expected outcomes were discussed with the patient. The patient and/or family concurred with the proposed plan, giving informed consent. Patient was brought to the geophysical laboratory director after IV hydration was begun and oral premedication was given. Patient was further sedated with midazolam. Patient was prepped and draped in the usual manner. Under strict aseptic precautions and local anesthesia a 6 Monegasque introducer was placed in the right radial artery. Using a a JR 4/0 catheters I performed coronary angiography and the same JR catheter was used to check LV pressures and LV gram was not performed. I then used a JL 4 guide catheter to be the Omni wire. After appropriate zeroing and normalization I performed IFR assessment of the proximal circumflex lesion and this came out to be normal in the range of 0.99 and 1.0. The circumflex lesion which was about 50% or so angiographically did not seem significant physiologically with a normal IFR assessment. The sheath was taken out and TR band applied as per protocol with saturation the fingers of the right hand off 96% After the procedure was completed the sheaths and catheters were all removed. Hemostasis was achieved with TR band. Saturation in the fingers of the right hand was about 96%. Moderate conscious sedation time was 27 minutes. Patient's oxygen saturation hemodynamics and EKG were monitored closely. Findings: Hemodynamics: Left ventricle end-diastolic pressure was 10 mmHg without any gradient across aortic valve Left Main: Normal no significant disease very short bifurcates into LAD and circumflex LAD: Minor irregularities no significant disease CIRC: Nondominant vessel 50 to 55% eccentric proximal lesion followed by some ectasia and then it gives off an obtuse marginal branch and then runs in the AV groove. 55% proximal lesion RCA: Technically dominant vessel recently stented on September 06 in the setting of a non-ST elevation ND widely patent the stented area looks widely patent with brisk flow in mild diffuse disease in PDA and PLV branches LV: Not performed Closure Device: TR band Complications: None Estimated Blood Loss: Minimal Impression: Right dominant system no significant obstructive CAD in the recently stented dominant RCA. Normal filling pressures no gradient. Circumflex 55% lesion proximally IFR negative. 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 Recommendation: Continued aggressive medical therapy discharged later on today. Results discussed with patient and . Complications: None; patient tolerated the procedure well. Disposition: [facility]- hemodynamically stable. Condition: Stable Discharge Disposition: Discharge patient home later on today.
[2024-10-08] MEDS ORDERED: SODIUM CHLORIDE 0.9% 1,000 ML IV SCH (11:45)
[2024-10-08 14:50] VITALS: BP 100/57; PULSE 58
--- NOTE | 2024-10-09 07:56 | CA ---
Transthoracic Echo Report Name: Brad Amos Age: 63 Gender: M : 1960 Exam Date: 10/08/2024 11:37 Exam Location: [facility] Ht (in): 69 Wt (lb): 221 Ordering Physician: Nikhil Tovar MD ([id number]) Attending/Referring Phys: [id number] Animator Grace Chauhan, ANTOINE Procedure CPT: Indications: LV FUNCTION, WALL MOTION, LIMITED STUDY Cardiac Hx: Cath, IN Technical Quality: Fair Contrast 1: Definity Total Dose (mL): 2 Contrast 2: Total Dose (mL): MEASUREMENTS (Male / Female) Normal Values 2D ECHO LV Diastolic Diameter PLAX 5.6 cm 4.2 - 5.9 / 3.9 - 5.3 cm LV Systolic Diameter PLAX 4.3 cm IVS Diastolic Thickness 1.0 cm 0.6 - 1.0 / 0.6 - 0.9 cm LVPW Diastolic Thickness 1.0 cm 0.6 - 1.0 / 0.6 - 0.9 cm LV Relative Wall Thickness 0.4 RV Internal Dim ED PLAX 2.6 cm M-MODE Aortic Root Diameter MM 3.5 cm LA Systolic Diameter MM 3.5 cm LA Ao Ratio MM 1.0 AV Cusp Separation MM 2.1 cm FINDINGS Left Ventricle Left ventricular ejection fraction is estimated at 50%. Mildly reduced ejection fraction with inferobasal and inferoseptal hypokinesia. Left ventricular cavity size normal. Left ventricular wall thickness normal. Right Ventricle Mild right ventricular dilatation. Reduced right ventricular global systolic function. Right Atrium Mild right atrial dilatation. Left Atrium Mild left atrial dilatation. Mitral Valve Aortic Valve Tricuspid Valve Pulmonic Valve Pericardium Minimal pericardial effusion (normal variant). Aorta Normal size aortic root and proximal ascending aorta. CONCLUSIONS Normal LV size with inferobasal and inferoseptal hypokinesia ejection fraction in the 50% range. No significant pericardial effusion probable fat pad Previewed by: Dr. Nikhil Tovar MD (Electronically Signed) Final Date: 09 Oct 2024 07:55
== END 2024-10-08 14:30 | disposition home or self-care (01) ==
LOC: CATHCVL 08:41
PROVIDERS: ATTEND Internal Medicine Interventional Cardiology
DX: I25.10 Atherosclerotic heart disease of native coronary artery without angina pectoris (principal); I47.20 Ventricular tachycardia, unspecified; I46.9 Cardiac arrest, cause unspecified; I10 Essential (primary) hypertension; E78.5 Hyperlipidemia, unspecified; Z86.79 Personal history of other diseases of the circulatory system; Z95.5 Presence of coronary angioplasty implant and graft; Z72.0 Tobacco use; Z79.02 Long term (current) use of antithrombotics/antiplatelets; Z79.82 Long term (current) use of aspirin; Z79.899 Other long term (current) drug therapy
CPT/HCPCS: 99152; 99153; 93308; 93458; 93799; C1887; C1769 ×2; C1894; J2250; J1644 ×3; J2003; Q9957; Q9967; J2305; 93454

== ENCOUNTER → 2024-10-31 | Outpatient (CLI) | payer BC ==
[2024-10-31 18:09] LABS: HCT 45.7 % (39.6-50.0); HGB 14.5 g/dL (13.0-17.0); MCH 28.3 pg (27.0-32.0); MCHC 31.7 g/dL (32.0-37.0); MCV 89.1 FL (80.0-97.0); Mean Platelet Volume 11.3 FL (9.5-12.2); NRBC Per 100 WBC 0 X 10*3/uL (0.00-0.01); Platelet Count 204 X 10*3/uL (140-440); RBC 5.13 X 10*6/uL (4.40-5.60); RDW 14.3 % (11.5-14.5); WBC 6.54 X 10*3/uL (4.50-10.00)
[2024-10-31 18:22] LABS: Blood Urea Nitrogen 12.9 mg/dL (9.0-27.0); Carbon Dioxide 25.6 mmol/L (21.6-31.8); Chloride 104 mmol/L (96-109); Potassium 4.4 mmol/L (3.5-5.5); Sodium 141 mmol/L (135-145)
== END | disposition home or self-care (01) ==
LOC: LABPAT 15:24
PROVIDERS: ATTEND Internal Medicine Clinical Cardiac Electrophysiology
DX: I49.01 Ventricular fibrillation (principal)
CPT/HCPCS: 80051; 82565; 84520; 85027

== ENCOUNTER 2024-11-12 10:12 | Day surgery (SDC) | payer BC ==
[2024-11-09 10:28] VITALS: BMI 30.2
[~2024-11-12 10:12] MED LIST changes: -ALPRAZolam 0.25 MG TAB PO PRN; -ALPRAZolam 0.5 MG TAB PO PRN; -ASPIRIN 325 MG TAB PO STA; -ATORVASTATIN 80 MG TAB PO STA; +DEXAMETHASONE SOD PHOSPHATE 4 MG/ML 1 ML VIAL IV ONE; +LACTATED RINGERS 1,000 ML IV SCH; +LIDOCAINE 1% (10MG/ML) FOR IV START INTRADERMA PRN; -NITROGLYCERIN SL TABS 0.4 MG TAB SUBLINGUAL PRN; +ONDANSETRON 4 MG/2 ML VIAL IVP ONE; +SODIUM CHLORIDE 0.9% 1,000 ML IV SCH; -SODIUM CHLORIDE 0.9% 1,000 ML in EMPTY BAG 1 BAG IV SCH; +ceFAZolin 1 GM in SODIUM CHLORIDE 0.9% IRRIG BTL 250 ML IRRIGATION PRN; +fentaNYL (PF) 50 MCG/ML 2 ML AMP IV PRN
[2024-11-12] MEDS: IV FLUID CONTINUATION 1,000 ML IV ONE (11:12)
[2024-11-12] MEDS: SODIUM CHLORIDE 0.9% 1,000 ML IV SCH (11:13)
[2024-11-12 11:15] VITALS: TEMP 97.1
[2024-11-12] MEDS ORDERED: MIDAZOLAM 2 MG/2 ML VIAL ONE (11:29)
[2024-11-12] MEDS ORDERED: fentaNYL (PF) 50 MCG/ML 2 ML AMP ONE (11:29)
[2024-11-12] MEDS ORDERED: ISOPROTERENOL 250 MCG/1.25 ML SYR IV ONE (11:29)
[2024-11-12] MEDS: CLINDAMYCIN 600 MG in DEXTROSE 5% IN WATER 50 ML IVPB STA (11:59)
[2024-11-12] MEDS: LIDOCAINE 1% INJ 10MG/ML (20 ML MDV) SQ ONE (12:01)
[2024-11-12] MEDS ORDERED: ACETAMINOPHEN IV (For NPO) 1,000 MG in EMPTY BAG 1 BAG IVPB ONE (13:33)
--- NOTE | 2024-11-12 14:11 | P.HPCAR ---
History of Present Illness This is Dr. Wright dictating an H/P on this patient The patient was interviewed and examined IMPRESSION / ASSESSMENT: Diagnosis [id number] cardiac arrest with ventricular fibrillation in the setting of non-Q wave [place] Following defibrillation, monomorphic VT was induced Successfully defibrillated to sinus rhythm Inferior and inferior septal scar on echo with left ventricular ejection fraction of the lower limits of normal Stenting of the distal RCA, culprit vessel Right ventricular enlargement Patient has a LifeVest at this time Amiodarone has been discontinued for the last 6 weeks On guideline directed medical treatment with beta-blockers dual antiplatelet therapy and statins PLAN: Diagnostic EP study for risk stratification sudden cardiac / VT VF ICD implantation if , hemodynamically significant, sustained VT/VF stat EP study HPI Patient denies any chest discomfort dizziness lightheadedness or loss of consciousness. He stopped his amiodarone about 6 weeks back He continues to wear the LifeVest after his [id number] cardiac arrest ROS: No fever chills or rigors, no cough, phlegm or expectoration, no nausea, vomiting or diarrhea, no hematuria, dysuria, no musculoskeletal complaints, no strokes or seizures, no skin lesions. EXAMINATION: Normal heart sounds no murmurs or gallop or rub Normal breath sounds no rhonchi no crackles Abdomen is soft No JVD No lower extremity edema Heart rates are normal REVIEW OF LABS, ECG & MEDICAL DATA Reviewed and include beta-blockers statins and dual antiplatelet therapy Amiodarone discontinued 04 October Physical Exam Vitals: Vital Signs Temp Pulse Resp BP BP Pulse Ox 11/12/24 11:13 97.1 F L 67 20 128/79 119/78 97 Intake and Output 11/11/24 11/12/24 11/12/24 22:59 06:59 14:59 Other: Weight 103.1 kg Past Medical History Past Medical History: Atrial Fibrillation, Hyperlipidemia, Hypertension, Myocardial Infarction ([place]) Additional Past Medical History / Comment(s): CURRENTLY WEARING LIFEVEST Last Myocardial Infarction Date:: 09/25/24 History of Any Multi-Drug Resistant Organisms: None Reported Past Surgical History: Heart Catheterization, Heart Catheterization With Stent Additional Past Surgical History / Comment(s): PILONIDAL CYST REMOVED Past Anesthesia/Blood Transfusion Reactions: No Reported Reaction Date of Last Stent Placement:: 09/25/24 Smoking Status: Never smoker - Past Family History Father Family Medical History: COPD Mother Additional Family Medical History / Comment(s): vascular disease. Physical Examination Vital Signs Temp Pulse Resp BP BP Pulse Ox 11/12/24 11:13 97.1 F L 67 20 128/79 119/78 97 Intake and Output 11/11/24 11/12/24 11/12/24 22:59 06:59 14:59 Other: Weight 103.1 kg Results Current Medications Generic Name Dose Route Start Last Admin Trade Name Hakeemq PRN Reason Stop Dose Admin Fentanyl Citrate 50 mcg 11/12/24 06:02 Fentanyl (Pf) 50 Mcg/Ml 2 Ml Amp IV 11/13/24 06:01 Q3M PRN Phase I - Pain Control Cefazolin Sodium 2 gm/ Sodium 50 mls @ 100 mls/hr 11/12/24 07:00 Chloride IVPB 11/13/24 06:59 ONCE PRN Pre-Op Sodium Chloride 1,000 mls @ 20 mls/hr 11/12/24 06:02 11/12/24 11:13 Saline 0.9% IV 12/12/24 06:01 20 mls/hr .Q24H JOSSIE Administration Sodium Chloride 1,000 mls @ 50 mls/hr 11/12/24 06:02 Saline 0.9% IV 12/12/24 06:01 .Q20H JOSSIE Cefazolin Sodium 1 gm/ Sodium 250 mls @ 250 mls/hr 11/12/24 07:00 Chloride IRRIGATION 11/13/24 06:59 ONCE PRN PRE-OP Lactated Ringer's 1,000 mls @ 20 mls/hr 11/12/24 06:02 Lactated Ringers IV 12/12/24 06:01 .Q24H JOSSIE Lidocaine HCl 0.1 ml 11/12/24 06:02 Lidocaine 1% (10mg/Ml) For Iv Start INTRADERMA 12/12/24 06:01 PER PROTOCOL PRN IV Start Intake and Output 11/11/24 11/12/24 11/12/24 22:59 06:59 14:59 Other: Weight 103.1 kg Patient Weight 11/13/24 06:59 Weight 103.1 kg
--- NOTE | 2024-11-12 14:16 | P.EPPROC ---
- EP Procedure Note Electrophysiology Procedure Note: Diagnosis: Miy-fn-agmlodua cardiac arrest. Initial rhythm was VF. Following first defibrillation he had fast monomorphic VT inferior apical exit Underwent successful defibrillation to sinus rhythm Non-Q wave SC with wall motion abnormality in the inferior wall, stenting to the RCA Initial treatment with amiodarone which was discontinued 6 weeks back Today he is being brought in for restratification to see if he has any inducible fast monomorphic VT Final diagnosis Normal HI narrow QRS Normal AH and HV intervals Slow pathway at 510 ms Normal sinus node recovery times No inducible VT/VF with up to triple extrastimuli both with and without Isopril Details Patient was brought to the EP lab in a fasting state. Written informed consent was obtained prior to the procedure. Venous sheaths were placed in the right main. Diagnostic catheters were positioned in the high right atrium His bundle area and then at 2 sites in the right ventricle, RV apex and mid to high RV septum. Sinus node recovery times were 1477, 1023 and 1305. Sinus cycle length was about 1000 ms AH 69, HV 50 Sinus cycle length 1020, HI interval 144 ms, QRS 88 and QT 450 ms AV node Wenckebach block 490 ms. Slow pathway at 510 ms No inducible SVT Ventricular extrastimulation up to triple extrastimuli and burst stimulation performed first from the RV apex and then subsequently from the mid to high RV septum Up to triple extrastimuli were employed This was repeated on Isopril There were no sustained ventricular arrhythmias induced despite a fairly aggressive protocol both on and off Isopril At the end of the procedure venous sheaths were removed and closed with a Mynx device and hemostasis was assured Plan Continue current medications No more amiodarone Discontinue LifeVest Follow-up in the office in 1 week. Patient may be discharged today by 7 PM if hemodynamically stable
[2024-11-12 15:10] VITALS: RESP 16
[2024-11-12 17:57] VITALS: BP 115/77; PULSE 66
[2024-11-12] MEDS ORDERED: ACETAMINOPHEN TAB 325 MG TAB PO PRN (20:00)
[2024-11-12] MEDS ORDERED: ATORVASTATIN 80 MG TAB PO SCH (21:00)
[2024-11-12] MEDS ORDERED: METOPROLOL TARTRATE 50 MG TAB PO SCH (21:00)
[2024-11-12] MEDS ORDERED: TICAGRELOR 90 MG TAB PO SCH (21:00)
[2024-11-13] MEDS ORDERED: ASPIRIN 81 MG PO SCH (09:00)
== END 2024-11-12 17:57 | disposition home or self-care (01) ==
LOC: CATHEP 10:12
PROVIDERS: ATTEND Internal Medicine Clinical Cardiac Electrophysiology
DX: I44.1 Atrioventricular block, second degree (principal); I46.9 Cardiac arrest, cause unspecified; I47.20 Ventricular tachycardia, unspecified; I49.01 Ventricular fibrillation; E78.5 Hyperlipidemia, unspecified; I10 Essential (primary) hypertension; I25.2 Old myocardial infarction; I48.91 Unspecified atrial fibrillation; Z95.5 Presence of coronary angioplasty implant and graft
CPT/HCPCS: 93623; 93620; 86900; 86901; 86850; C1894; C1769; C1760; C1730 ×2; J2250; J2003; J3010; J0736